=== PATIENT | male | born 1960 | race Caucasian/White ===

== ENCOUNTER 2016-12-26 17:49 | Inpatient (IN) | payer BC ==
[2016-12-26 19:31] LABS: Hematocrit 47 % (42-52); Hemoglobin 15.5 g/dl (14.0-18.0); Mean Corpuscular HGB Conc 33 g/dl (31-36); Mean Corpuscular Hemoglobin 30 pg (27-31); Mean Corpuscular Volume 90 fL (80-94); Mean Platelet Volume 9 um3 (7.4-10.4); Red Blood Count 5.24 10^6/ul (4.0-5.4); Red Cell Distribution Width 15 % (10.5-15); White Blood Count 6.3 10^3/ul (3.5-10.8)
[2016-12-26 19:52] LABS: Albumin 4.2 g/dL (3.2-5.2); BUN/Creatinine Ratio 21.6 (8-20); Calcium 9.4 mg/dL (8.6-10.3); EGFR African American 102.2 (>60); EGFR Non-African American 79.5 (>60); Globulin 2.8 g/dL (2-4); Magnesium 2.1 mg/dL (1.9-2.7); Potassium 4.3 mmol/L (3.5-5.0); Total Bilirubin 0.7 mg/dL (0.2-1.0)
[2016-12-26 20:13] LABS: TSH (Thyroid Stimulating Horm) 1.37 mcIU/mL (0.34-5.60)
--- NOTE | 2016-12-26 21:38 | ED ---
Julius De Dios Benjamin, scribed for Omer Em MD on 12/26/16 at 1905 . Palpitations / Dysrhythmia - HPI Summary HPI Summary: 56yo male comes to ED after having afib EKG readings at his PCPs office during his routine checkup visit. Pt is asymptomatic. Denies trouble lying flat in bed , or exercising. No dizziness, lightheadedness, CP, or SOB. - History of Current Complaint Chief Complaint: EDDysrhythmPalp Time Seen by Provider: 12/26/16 18:05 Hx Obtained From: Patient Onset/Duration: Sudden Onset, Lasting Hours, Still Present Severity Initially: Mild Severity Currently: Mild Character: Irregular Aggravating: Nothing Alleviating: Nothing Associated Signs & Symptoms: Negative - Allergy/Home Medications Allergies/Adverse Reactions: Allergies Allergy/AdvReac Type Severity Reaction Status Date / Time No Known Allergies Allergy Verified 02/29/12 14:14 Home Medications: Home Medications [id number] Ethyl Esters (NF) [Lovaza (NF)] 4 gm PO DAILY 12/26/16 [History Confirmed 12/26/16] traZODone TAB* [Desyrel TAB*] 100 mg PO BEDTIME PRN 12/26/16 [History Confirmed 12/26/16] PMH/Surg Hx/FS Hx/Imm Hx Endocrine/Hematology History: Denies: Hx Diabetes, Hx Thyroid Disease Cardiovascular History: Denies: Hx Hypertension Respiratory History: Denies: Hx Asthma, Hx Chronic Obstructive Pulmonary Disease (COPD) GI History: Denies: Hx Ulcer Infectious Disease History: No Infectious Disease History: Denies: Hx Hepatitis, Hx Human Immunodeficiency Virus (HIV), Traveled Outside the [place] in Last 30 Days - Family History Known Family History: Negative: Hypertension - Social History Occupation: Employed Full-time Lives: With Family Alcohol Use: Occasionally Substance Use Type: Reports: None Smoking Status (MU): Never Smoked Tobacco Review of Systems Constitutional: Negative Eyes: Negative ENT: Negative Positive: Palpitations Respiratory: Negative Gastrointestinal: Negative Genitourinary: Negative Musculoskeletal: Negative Skin: Negative Neurological: Negative Psychological: Normal All Other Systems Reviewed And Are Negative: Yes Physical Exam Triage Information Reviewed: Yes Vital Signs On Initial Exam: Initial Vitals Temp Pulse Resp BP Pulse Ox 97.1 F 106 16 134/88 95 12/26/16 17:51 12/26/16 17:51 12/26/16 17:51 12/26/16 17:51 12/26/16 17:51 Vital Signs Reviewed: Yes Appearance: Positive: Well-Appearing, No Pain Distress, Well-Nourished Skin: Positive: Warm, Skin Color Reflects Adequate Perfusion, Dry Head/Face: Positive: Normal Head/Face Inspection Eyes: Positive: Normal ENT: Positive: Normal ENT inspection, Hearing grossly normal Neck: Positive: Supple, Nontender Respiratory/Lung Sounds: Positive: Clear to Auscultation, Breath Sounds Present Cardiovascular: Positive: IRR Abdomen Description: Positive: Nontender, Soft Bowel Sounds: Positive: Present Musculoskeletal: Positive: Normal, Strength/ROM Intact Neurological: Positive: Sensory/Motor Intact, Alert, Oriented to Person Place, Time, CN Intact II-III Psychiatric: Positive: Affect/Mood Appropriate - Sidman Coma Scale Coma Scale Total: 15 Diagnostics - Vital Signs Vital Signs Temp Pulse Resp BP Pulse Ox 12/26/16 18:05 77 95 12/26/16 18:04 98.7 F 89 18 118/87 95 12/26/16 18:03 118/87 12/26/16 17:51 97.1 F 106 16 134/88 95 - Laboratory Lab Results: Lab Results 12/26/16 12/26/16 12/26/16 Range/Units 19:12 19:12 19:12 WBC 6.3 (3.5-10.8) 10^3/ul RBC 5.24 (4.0-5.4) 10^6/ul Hgb 15.5 (14.0-18.0) g/dl Hct 47 (42-52) % MCV 90 (80-94) fL MCH 30 (27-31) pg MCHC 33 (31-36) g/dl RDW 15 (10.5-15) % Plt Count 240 (150-450) 10^3/ul MPV 9 (7.4-10.4) um3 Neut % (Auto) 39.7 (38-83) % Lymph % (Auto) 45.2 (25-47) % [place] % (Auto) 12.4 H (1-9) % Eos % (Auto) 1.7 (0-6) % Baso % (Auto) 1.0 (0-2) % Absolute Neuts (auto) 2.5 (1.5-7.7) 10^3/ul Absolute Lymphs (auto) 2.9 (1.0-4.8) 10^3/ul Absolute Monos (auto) 0.8 (0-0.8) 10^3/ul Absolute Eos (auto) 0.1 (0-0.6) 10^3/ul Absolute Basos (auto) 0.1 (0-0.2) 10^3/ul Absolute Nucleated RBC 0.01 10^3/ul Nucleated RBC % 0.2 INR (Anticoag Therapy) 0.94 (0.89-1.11) Sodium 139 (133-145) mmol/L Potassium 4.3 (3.5-5.0) mmol/L Chloride 103 (101-111) mmol/L Carbon Dioxide 29 (22-32) mmol/L Anion Gap 7 (2-11) mmol/L BUN 21 (6-24) mg/dL Creatinine 0.97 (0.67-1.17) mg/dL Est GFR ( Amer) 102.2 (>60) Est GFR (Non-Af Amer) 79.5 (>60) BUN/Creatinine Ratio 21.6 H (8-20) Glucose 99 (70-100) mg/dL Lactic Acid (0.5-2.0) mmol/L Calcium 9.4 (8.6-10.3) mg/dL Magnesium 2.1 (1.9-2.7) mg/dL Total Bilirubin 0.70 (0.2-1.0) mg/dL AST 31 (13-39) U/L ALT 37 (7-52) U/L Alkaline Phosphatase 60 (34-104) U/L Troponin I 0.00 (<0.04) ng/mL B-Natriuretic Peptide ( - 100) pg/mL Total Protein 7.0 (6.4-8.9) g/dL Albumin 4.2 (3.2-5.2) g/dL Globulin 2.8 (2-4) g/dL Albumin/Globulin Ratio 1.5 (1-3) TSH 1.37 (0.34-5.60) mcIU/mL 12/26/16 12/26/16 Range/Units 19:12 19:12 WBC (3.5-10.8) 10^3/ul RBC (4.0-5.4) 10^6/ul Hgb (14.0-18.0) g/dl Hct (42-52) % MCV (80-94) fL MCH (27-31) pg MCHC (31-36) g/dl RDW (10.5-15) % Plt Count (150-450) 10^3/ul MPV (7.4-10.4) um3 Neut % (Auto) (38-83) % Lymph % (Auto) (25-47) % [place] % (Auto) (1-9) % Eos % (Auto) (0-6) % Baso % (Auto) (0-2) % Absolute Neuts (auto) (1.5-7.7) 10^3/ul Absolute Lymphs (auto) (1.0-4.8) 10^3/ul Absolute Monos (auto) (0-0.8) 10^3/ul Absolute Eos (auto) (0-0.6) 10^3/ul Absolute Basos (auto) (0-0.2) 10^3/ul Absolute Nucleated RBC 10^3/ul Nucleated RBC % INR (Anticoag Therapy) (0.89-1.11) Sodium (133-145) mmol/L Potassium (3.5-5.0) mmol/L Chloride (101-111) mmol/L Carbon Dioxide (22-32) mmol/L Anion Gap (2-11) mmol/L BUN (6-24) mg/dL Creatinine (0.67-1.17) mg/dL Est GFR ( Amer) (>60) Est GFR (Non-Af Amer) (>60) BUN/Creatinine Ratio (8-20) Glucose (70-100) mg/dL Lactic Acid 1.1 (0.5-2.0) mmol/L Calcium (8.6-10.3) mg/dL Magnesium (1.9-2.7) mg/dL Total Bilirubin (0.2-1.0) mg/dL AST (13-39) U/L ALT (7-52) U/L Alkaline Phosphatase (34-104) U/L Troponin I (<0.04) ng/mL B-Natriuretic Peptide 184 H ( - 100) pg/mL Total Protein (6.4-8.9) g/dL Albumin (3.2-5.2) g/dL Globulin (2-4) g/dL Albumin/Globulin Ratio (1-3) TSH (0.34-5.60) mcIU/mL Result Diagrams: 12/26/16 19:12 12/26/16 19:12 Lab Statement: Any lab studies that have been ordered have been reviewed, and results considered in the medical decision making process. - EKG 1807. Cardiac Rate: Tachycardia - 114bpm EKG Rhythm: Atrial Fibrillation ST Segment: Non-Specific Course/Dx - Course Course Of Treatment: Reviewed pts medication and allergy lists. Blood pressure noted. Discussed with Dr. Godfrey (Cardio) at 1956. Assessment/Plan: Mr. Salazar presented with the new onset of A-Fib in a controlled rate and asymptomatic. Dr. Segovia has been consulted to evaluate him. No Critical Care Time - Diagnoses Provider Diagnoses: New onset a-fib Discharge - Discharge Plan Condition: Stable Disposition: ADMITTED TO [facility] The documentation as recorded by the Julius peters Benjamin accurately reflects the service I personally performed and the decisions made by , Omer Em MD.
[2016-12-26] MEDS ORDERED: traZODone TAB* 50 MG TAB PO PRN (23:08)
[2016-12-26] MEDS ORDERED: Metoprolol Tartrate TAB* 25 MG PO SCH (23:45)
--- NOTE | 2016-12-27 02:01 | HP ---
CC: Warren Wolf NP * HISTORY AND PHYSICAL: DATE OF ADMISSION: 12/26/16 PRIMARY CARE PHYSICIAN: Warren Wolf NP CHIEF COMPLAINT: Irregular heartbeat. HISTORY OF PRESENT ILLNESS: The patient is a 56-year-old gentleman who said he just went for his regular history and physical today with his PCP and had no symptoms but his doctor noticed an irregular heartbeat on exam. She did an EKG and found he was in atrial fibrillation and sent him to the ER for evaluation. Here in the ER, the patient was in atrial fibrillation, but again was asymptomatic. He denies chest pain, shortness of breath, palpitations, or lightheadedness or weakness. He was slightly tachycardic and rate is just over 100 beats per minute. A call was placed to Cardiology by the ER doctor who wanted the patient to be admitted for evaluation and echocardiogram. PAST MEDICAL HISTORY: The patient has no significant past medical history. PAST SURGICAL HISTORY: He has no past surgical history. MEDICATIONS: His only medications are: 1. Lovaza 4 g daily. 2. Trazodone 100 mg at bedtime as needed. ALLERGIES: He has no known drug allergies. FAMILY HISTORY: His mother is alive at 82, alive and well. Father at 75 of heart condition. SOCIAL HISTORY: No tobacco. Social alcohol and recreational drug use. 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 He is . His Mariah Salazar is his healthcare proxy. He has 2 daughters. REVIEW OF SYSTEMS: A 14-point review of systems is completed with the patient. All pertinent positives and negatives are in the history of present illness, otherwise it is negative. PHYSICAL EXAMINATION GENERAL: A pleasant gentleman lying in bed, in no acute distress. VITAL SIGNS: Temperature 97.7 degrees, heart rate 92 beats per minute, respiratory rate 16 breaths per minute, pulse ox 95% on room air, blood pressure . HEENT: Normocephalic and atraumatic. Pupils are equal, round and reactive to light. Moist mucous membranes. NECK: Supple. No JVD, bruits, palpable thyroid or lymphadenopathy. CHEST: Clear to auscultation and percussion bilaterally. CARDIOVASCULAR: S1, S2 appreciated. Regular rate and rhythm. No murmurs, gallops, or rubs. ABDOMEN: Positive bowel sounds in all 4 quadrants. Soft, nontender, and nondistended. No hepatosplenomegaly. EXTREMITIES: No cyanosis, clubbing, or edema. +2 peripheral pulses bilaterally. NEUROLOGIC: Alert and oriented x3. Moves all extremities. SKIN: No rashes or abnormalities. LABORATORY DATA: White count 6.3, hemoglobin 15.5, hematocrit 47, platelets 240,000. Sodium is 139, potassium 4.3, chloride 103, CO2 29, BUN 21, creatinine 0.97, glucose is 99, BNP is 184. INR is 0.94. IMAGING: EKG shows atrial fibrillation with rapid ventricular response at a rate of 114, normal axis, no acute ST or T-wave changes. ASSESSMENT AND PLAN: 1. Atrial fibrillation, new onset, but do not know how long the patient has had it as he has been asymptomatic. His CHADS2 score is 0. I will start him on an aspirin a day. He is slightly tachycardic, so I will start him on metoprolol 25 mg twice a day. I will cycle his troponins. I will get a transthoracic echocardiogram in the a.m. I have admitted him to the CD Unit and should be able to be discharged as early as tomorrow. 2. FEN. Regular diet. 3. DVT prophylaxis. Heparin subcu. 4. The patient is a full code. TIME SPENT: Over 75 minutes were spent on this H and P; more than 40 minutes of which is spent direct [id number] contact with the patient in evaluation, physical exam, counseling, and coordination of care. [id number]/[facility] #: [id number] MTDD
[2016-12-27] MEDS ORDERED: Heparin VIAL(*) 5000 UNITS/ML VIAL (FIVE THOUSAND) SUBCUT SCH (06:00)
[2016-12-27] MEDS ORDERED: Diltiazem IV* 5 MG/ML 5 ML VIAL (for loading dose/IV Push) (25 MG) IV SLOW PU ONE (08:12)
[2016-12-27] MEDS ORDERED: Diltiazem DRIP* 100 MG/100 ML ADDV.BAG IVPB SCH (08:13)
[2016-12-27] MEDS ORDERED: Diltiazem IV VIAL* 125 MG in D5W 100 ML BAG* 100 ML IV ONE (08:13)
[2016-12-27] MEDS ORDERED: Aspirin EC TAB* 325 MG PO SCH (09:00)
[2016-12-27] MEDS: Apixaban* 5 MG TAB PO SCH ×2 (11:37→20:54)
--- NOTE | 2016-12-27 12:25 | CONS ---
CC: Hospitalist Service; Warren Wolf NP CONSULTATION REPORT: DATE OF CONSULT: 12/27/16 REASON FOR CONSULTATION: Atrial fibrillation. CHIEF COMPLAINT: Exercise-induced diaphoresis. HISTORY OF PRESENT ILLNESS: Mr. Salazar is a 56-year-old gentleman with no prior history of AFib. He presented to his primary practitioner yesterday for prescription renewal and on exam his heart rate was irregularly irregular. An EKG in the office confirmed he was in atrial fibrillation and he was advised to present to the emergency department. EKGs here confirmed his atrial fibrillation. He was admitted and metoprolol initiated. Overnight, he has continued to have rapid ventricular rates. Anticoagulation was not initiated overnight due to his low CHADS score. The patient denies any awareness of palpitations or racing of the heart, no decline in functional ability, no orthopnea, PND, exercise intolerance. His mentioned, and the patient concurs, that he is much more diaphoretic when he goes out on the weekends to do chores in the garden than he has been in the past. This has been true all summer. The patient drinks alcohol occasionally and no recent excess or change in patterns. His said he does snore a lot if he sleeps in the chair, but there is no history of fatigue, daytime somnolence, or decline in energy. When I asked the patient about Lyme, he said he has had a spot on his thigh for many weeks that has not gone away, but it never looked like a target lesion and he never saw a tick on it. PAST MEDICAL HISTORY: The patient has a past medical history of rheumatic fever in childhood. He had a murmur heard on exam for the and was told to use antibiotic prophylaxis years ago and he has dyslipidemia treated with Lovaza. MEDICATIONS: Current medications and outpatient medications include: 1. Lovaza 4 g a day. 2. Trazodone 100 mg q.h.s. p.r.n. Inpatient medications include: 1. Aspirin 325 mg a day. 2. Lopressor 25 mg b.i.d. 3. Subcutaneous heparin. 4. Trazodone 100 mg q.h.s. ALLERGIES: He has no known medication allergies. FAMILY HISTORY: Significant that his father at age 75 with history of diabetes and from complications of open heart surgery, but the family is unsure if it was valve or bypass ([facility]). The patient's mother is alive in her 80s. SOCIAL HISTORY: The patient drinks rare alcohol. No history of recreational drug use. 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 REVIEW OF SYSTEMS: A 14-point review of systems was completed, pertinent positives as listed in the history of present illness include diaphoresis with exercise, heavy snoring with sleeping, and the lesion on his thigh that has been present for a week that he is worried may represent a bug bite. It is negative for orthopnea, PND, chest pain, pressure, heaviness, dizziness, palpitations, or change in functional ability. All other review of systems were unremarkable. The patient awoke Sunday with bilateral foot pain that he has never had before and this progressively improved throughout the day as he moved around and has not recurred. PHYSICAL EXAM: Vital Signs: The patient is 5 feet 10 inches, weighs 192 pounds with a BMI of 27. Vital signs on arrival: Blood pressure 134/88 with a pulse of 106. Current vitals: Blood pressure 113/86, pulse 121, irregularly irregular. Temperature 97.6 and oxygen saturation on room air 94%. General: The patient is an older middle-aged gentleman in no acute distress. Psychologically, calm, cooperative, pleasant. Neurologically, awake, alert, oriented to person, place and time. Cranial nerves II through XII are intact. Grossly normal sensory and motor function, moves well in the bed, but gait not checked. Skin: He is moist and the hair on one of his temples is matted to his head from moisture. There is no evidence of cyanosis. The inner thigh has one maculopapular lesion; otherwise, no rashes or other skin abnormalities. HEENT: Pupils are equal and round. Mucous membranes are moist. Neck: Without increased JVP, good carotid pulses, no audible bruits. Respirations were clear with good effort. No wheezes, rales, or rhonchi. Coronary: S1, S2, irregularly irregular. No murmurs heard in any position even in the left lateral decubitus position and no murmurs at end expiration. Abdomen: Flat, active bowel sounds, soft, nontender, no hepatosplenomegaly or masses. No bruits. The lower extremities had thready dorsalis pedal pulses. DIAGNOSTIC STUDIES/LAB DATA: A 12-lead ECG on arrival here shows atrial fibrillation with a ventricular rate of 114 beats a minute, QRS axis +15 with normal intraventricular conduction times, ST segment is unremarkable. Monitor AFib with 2.5 second pauses to high rates 150s intermittently. White count 6.3, hemoglobin 15.5, platelets 240. INR 0.94. Sodium 139, potassium 4.3, chloride 103, bicarb 29, BUN 21, creatinine 0.97, ALT 37. Troponin #1 0.00, #2 0.01, #3 0.00. BNP 184. TSH 1.37. No chest x-ray completed. No echo or other studies at this point in time. IMPRESSION: In summary, Mr. Salazar is a 56-year-old gentleman who presented with atrial fibrillation of uncertain duration found at a routine physician appointment, who has a rapid ventricular rate that has not responded to low doses of metoprolol. I agree with the hospitalist's plan to initiate diltiazem drip for better rate control and full anticoagulation with the aim of cardioversion. I had an extensive and comprehensive discussions with the patient, his , and one of his daughter's about atrial fibrillation potential etiologies including age over 50, sleep apnea and even in certain instances, Lyme, as well as valvular disease. His CHADS score is low from the information we have, but to cardiovert him and minimize risk of stroke, I have recommended anticoagulation and either waiting a month or HARDY-guided cardioversion in the morning. The patient is amenable to HARDY-guided cardioversion in the morning and I recommended he stay on anticoagulation at least 3 months. Following his transesophageal echo, we can determine antiarrhythmic needs. As an outpatient, I would recommend he get a formal sleep study to look for the possibility of obstructive sleep apnea because of his history of snoring and correlation of sleep apnea with atrial fibrillation. Additional recommendations will be made pending his echo results and ability to cardiovert. ADDENDUM: transthoracic echo showed EF 25%, bicuspid aortic valve with moderate stenosis. I recommended stopping diltiazem, intitiation of ACEI and Coreg or Toprol and continue with the plan of anticoagulation and HARDY guided cardioversion. He will need an antiarrhythmic post CV, amiodarone the safest short term and can be converted in the future. Serial echos to see if EF improves with pentecostal of sinus rhythm and the patient should get a stress test or cath to evaluate for possible CAD although normal troponins are reassuring. [id number]/[facility] #: [id number] MINH
--- NOTE | 2016-12-27 12:30 | ECHO ---
Patient: CHERISE WEBSTER [facility] Rec#: [id number] : 1960 Date: 12/27/2016 Age: 56y Height: 177.8 cm / 70.0 in Weight: 87.09 kg / 191.9 lbs Sex: M BSA: 2.05 Room#: 434 Admit Date#: 12/26/2016 Type: Inpatient Referring: Maycol Segovia MD Reading: Gisele Baker MD Religious Educator: Lilly Samuel,RDCS,RDMS CC: Warren Luciano Transthoracic Echocardiogram Indication: AFIB BP: 114/68 HR: 87 Rhythm: A-Fib Findings History: Murmur, rheumatic fever Technical Comments: The study quality is good. Completed 0900 Left Ventricle: The left ventricular chamber size is normal. Mild concentric left ventricular hypertrophy is observed. There is global hypokinesis of the left ventricle with minor regional variation. There is severely decreased left ventricular systolic function. The estimated ejection fraction is 20-25%. The assessment of diastolic function is non-diagnostic. Left Atrium: The left atrium is mild to moderately dilated. Right Ventricle: The right ventricle wall thickness is mildly increased. The right ventricle is slightly dilated. The right ventricular global systolic function is moderately reduced. Right Atrium: The right atrium is mildly dilated. Aortic Valve: The aortic valve appears bicuspid. The aortic valve leaflets are moderately thickened.NCC very calcified. Systolic excursion of the aortic valve cusps is reduced. There is a trace of aortic regurgitation. There is moderate aortic stenosis. The mean gradient of the aortic valve is 7.3 mmHg. The aortic valve area, by peak velocities, is calculated at 1 cm2. Mitral Valve: The mitral valve leaflets appear normal. There is mild mitral regurgitation. There is no evidence of mitral stenosis. Tricuspid Valve: The tricuspid valve leaflets are normal. There is mild tricuspid regurgitation. No pulmonary hypertension is noted. Pulmonic Valve: The pulmonic valve appears normal. There is mild pulmonic regurgitation. Pericardium: There is no significant pericardial effusion. Aorta: There is moderate dilatation of the ascending aorta. There is moderate dilatation of the aortic arch. There is no dilation of the aortic root. Pulmonary Artery: The main pulmonary artery appears normal. Venous: The inferior vena cava appears normal in size. There is a greater than 50% respiratory change in the inferior vena cava dimension. Conclusions Mild concentric left ventricular hypertrophy is observed. Mild concentric left ventricular hypertrophy is observed. There is global hypokinesis of the left ventricle with minor regional variation. The estimated ejection fraction is 20-25%. The right ventricle wall thickness is mildly increased. The aortic valve appears bicuspid. There is a trace of aortic regurgitation. There is moderate aortic stenosis: the mean gradient of the aortic valve is 7.3 mmHg, the aortic valve area is 1 cm2, DI 0.34. (EBENEZER could be overestimated due to depressed EF). There is mild mitral regurgitation. There is mild tricuspid regurgitation. No pulmonary hypertension is noted. There is moderate dilatation of the aortic archL 4 cm. The patient was in atrial fibrillation throughout the study. No prior study to compare. Measurements Name Value Normal Range RVIDd (AP) 2D 3.7 cm (0.9 - 2.6) RVDdMajor (2D) 3.4 cm (2.2 - 4.4) RAd ISD 4CH 6.1 cm (3.4 - 4.9) RA (A4C)W 4.5 cm (2.9 - 4.6) IVSd (2D) 1.2 cm (0.6 - 1) LVPWd (2D) 1.3 cm (0.6 - 1) LVIDd (2D) 4.8 cm (3.6 - 5.4) LVIDs (2D) 4.5 cm - LV FS (2D) 6 % (25 - 45) Aortic Annulus 2.2 cm (1.4 - 2.6) Ao root diameter (2D) 3.5 cm (2.1 - 3.5) Ascending Ao 4 cm (2.1 - 3.4) Aortic arch 4 cm (1.8 - 3.4) LA dimension (AP) 2D 4.1 cm (2.3 - 3.8) LAd ISD 4CH 6.2 cm (2.9 - 5.3) LA ISD 4CH W 4.4 cm (2.5 - 4.5) Name Value Normal Range LA ESV SP 4CH (A/L) 79.86 ml - LA ESV SP 2CH (A/L) 72.35 ml - LA ESV BP (A/L) 77.28 ml - LA ESV BP (A/L) index 38 ml/m2 - LA ESV SP 4CH (MOD) 73.57 ml - LA ESV SP 2CH (MOD) 69.25 ml - Name Value Normal Range MV E-wave Vmax 0.6 m/sec - MV deceleration time 120 msec - LV septal e' Vmax 0.05 m/sec - LV lateral e' Vmax 0.04 m/sec - LV E:e' septal ratio 12 ratio - LV E:e' lateral ratio 15 ratio - Name Value Normal Range AV Vmax 1.7 m/sec - AV VTI 32 cm - AV peak gradient 11.6 mmHg - AV mean gradient 7.3 mmHg - LVOT diameter 2.1 cm - LVOT Vmax 0.5 m/sec - LVOT VTI 10.8 cm - LVOT peak gradient 1 mmHg - LVOT mean gradient 0.7 mmHg - DOI (VTI) 0.3 ratio - EBENEZER (continuity Vmax) 1 cm2 - EBENEZER (continuity VTI) 1.2 cm2 - PATRICIA Vmax 0.7 m/sec - Name Value Normal Range TR Vmax 1.9 m/sec - TR peak gradient 14 mmHg - RAP 8 mmHg - RVSP 22 mmHg - IVC diameter 1.9 cm - Name Value Normal Range PV Vmax 0.5 m/sec - PV peak gradient 1 mmHg -
[2016-12-27] MEDS ORDERED: Diltiazem TAB* 60 MG PO SCH (13:00)
[2016-12-27] MEDS: Carvedilol TAB* 6.25 MG PO SCH ×2 (13:25→20:54)
--- NOTE | 2016-12-27 13:52 | PN ---
Subjective Date of Service: 12/27/16 Interval History: HOSPITALIST PROGRESS NOTE Patient seen and examined at bedside. He offers no complaints, even when his HR was >150bpm. He states he went to a regular physicial with his PCP yesterday and was found to be in Afib. Last visit prior to that was in April 2016 and at that time no one mention irregular HB. 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 No chest pain, palpitations, dizziness, lightheadedness, or dyspnea. Family History: Unchanged from Admission Social History: Unchanged from Admission Past Medical History: Unchanged from Admission Objective Active Medications: Apixaban (Eliquis*) 5 mg PO BID [facility] Last Admin: 12/27/16 11:37 Dose: 5 mg Carvedilol (Coreg Tab*) 6.25 mg PO BID [facility] Last Admin: 12/27/16 13:25 Dose: 6.25 mg Lisinopril (Prinivil Tab*) 5 mg PO DAILY [facility] Trazodone HCl (Desyrel Tab*) 100 mg PO BEDTIME PRN PRN Reason: SLEEP Vital Signs 12/26/16 12/27/16 12/27/16 23:15 00:00 04:06 Temperature 97.7 F 97.5 F Pulse Rate 76 135 87 Respiratory 17 16 Rate Blood Pressure 113/69 129/78 114/86 (mmHg) O2 Sat by Pulse 95 96 98 Oximetry 12/27/16 07:36 Temperature 97.6 F Pulse Rate 121 Respiratory 16 Rate Blood Pressure 113/86 (mmHg) O2 Sat by Pulse 94 Oximetry Oxygen Devices in Use Now: None Appearance: Pleasant gentleman sitting up in bed in NAD. Eyes: No Scleral Icterus Ears/Nose/Mouth/Throat: Mucous Membranes Moist Neck: Trachea Midline Respiratory: Symmetrical Chest Expansion and Respiratory Effort, Clear to Auscultation Cardiovascular: - - Normal S1 and S2, irregularly irregular, could not hear any murmurs Abdominal: NL Sounds; No Tenderness; No Distention Extremities: No Edema Neurological: Alert and Oriented x 3, NL Muscle Strength and Tone Lines/Tubes/Other Access: Clean, Dry and Intact Peripheral IV Nutrition: Taking PO's Result Diagrams: 12/26/16 19:12 12/26/16 19:12 Assess/Plan/Problems-Billing Assessment: Mr. 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 - Patient Problems (1) Atrial fibrillation with RVR Comment: - Did not respond to Metoprolol initially, but responded well to Cardizem drip. - Now we know his EF is depressed, will d/c Cardizem, start Coreg and Lisinopril. - Lengthy conversation with patient regarding need for anticoagulation. Although his CHADs score is low, he would benefit of HARDY CV and to pursue that, he needs to be anticoagulated. We discussed risks and benefits of anticoagulation with heparin, warfarin, NOACS. After reviewing the information, we decided to start Eliquis. - Cardiology consult requested. (2) Systolic CHF Comment: - Newly diagnosed, but not in exacerbation at this time. - Echo showed EF 20-25% with global hypokinesis, bicuspid AV with moderate stenosis. - Cardiology recommended Coreg and Lisinopril. (3) DVT prophylaxis Comment: - Eliquis. (4) Full code status Status and Disposition: Change to inpatient.
[2016-12-28] MEDS ORDERED: Lisinopril TAB* 5 MG PO SCH (09:00)
[2016-12-28] MEDS: Apixaban* 5 MG TAB PO SCH (09:44)
[2016-12-28] MEDS: Carvedilol TAB* 6.25 MG PO SCH (09:44)
[2016-12-28] MEDS ORDERED: Midazolam* 1 MG/ML 5 ML VIAL (5 MG) ONE (10:19)
[2016-12-28] MEDS ORDERED: fentaNYL* 50 MCG/ML 2 ML VIAL (100 MCG VIAL) ONE (10:20)
[2016-12-28] MEDS ORDERED: Flumazenil* 0.1 MG/ML 5 ML MDV ONE (10:20)
[2016-12-28] MEDS ORDERED: Naloxone* 0.4 MG/ML 1 ML VIAL ONE (10:20)
[2016-12-28] MEDS ORDERED: Lidocaine 2% VISCOUS* 15 ML UDC ONE (10:20)
[2016-12-28 14:35] VITALS: BP 115/75
--- NOTE | 2016-12-28 14:36 | TEE ---
Amended Report Patient: CHERISE WEBSTER [facility] Rec#: [id number] : 1960 Date: 12/28/2016 Age: 56y Height: 178 cm / 70.1 in Weight: 87 kg / 191.7 lbs Sex: M BSA: 2.05 Room#: 434 Admit Date#: 12/26/2016 Type: Inpatient Referring: Gisele Baker MD Performing: Luiz Godfrey MD Reading: Luiz Godfrey MD Shrimp Peeler: Lilly Samuel RDCS,RDMS Nurse: Nasra Diaz RN Transesophageal Echocardiogram Indication: AFIB BP: 109/91 HR: 121 Rhythm: A-Fib Findings History: Murmur, rheumatic fever Technical Comments: The study quality is good. Left Ventricle: The left ventricular chamber size is mildly dilated. Mild concentric left ventricular hypertrophy is observed. There is severely decreased left ventricular systolic function. The estimated ejection fraction is 20-25%. The assessment of diastolic function is non-diagnostic. Left Atrium: The left atrium is mild to moderately dilated. Spontaneous echo contrast is present in the left atrium cavity and appendage. plus 4 smoke. Echodense structures noted within lower 3rd of left atrial appendage. Unable to rule out a mass or thrombus in the left atrial appendage. Right Ventricle: The right ventricle is slightly dilated. The right ventricular global systolic function is mildly to moderately reduced. Right Atrium: The right atrium is mildly dilated. The bubble study is negative. A patent foramen ovale is not demonstrated with color Doppler and agitated contrast. Aortic Valve: The aortic valve appears bicuspid. The aortic valve leaflets are mildly thickened. There is aortic annular calcification. There is a trace of aortic regurgitation. There is mild aortic stenosis. Mitral Valve: The mitral valve leaflets appear normal. There is a trace of mitral regurgitation. There is no evidence of mitral stenosis. Tricuspid Valve: The tricuspid valve leaflets are normal. There is trace tricuspid regurgitation. Pulmonic Valve: The pulmonic valve appears normal. There is mild pulmonic regurgitation. Pericardium: There is no significant pericardial effusion. Aorta: There is moderate dilatation of the ascending aorta. There is mild dilatation of the aortic root. Pulmonary Artery: The main pulmonary artery appears normal. Venous: The inferior vena cava appears normal. The pulmonary veins appear normal. 3 out of 4 visualized The superior vena cava appears normal. HARDY Procedures: All standard views were attempted within the limitations of patient tolerance and safety. History and physical as well as labs were reviewed. The patient was in a fasting state. Risks and benefits of the procedure, including alternatives, were discussed and written informed consent was obtained. The patient and/or their health care sales donor recruitment representative expressed understanding of the procedure, risks and benefits. Baseline and continuous monitoring of blood pressure, heart rate, pulse oximetry and heart rhythm was performed throughout the procedure. The appropriate time-out procedure was performed as per [facility] protocol. The patient was placed in the left lateral decubitus position. The patient's posterior pharynx was anesthetized with 20ml of 2% viscous lidocaine. The patient received IV Midazolam with a total dose of 4 mg The patient received IV Fentanyl with a total dose of 50 mcg An oral bite block was inserted for protection of oral dentition. The multiplane transesophageal echocardiogram probe was inserted through the posterior oropharynx and advanced into the esophagus without difficulty. Multiple 2D images were obtained of the heart and its related structures. Color flow Doppler was used for evaluation. Spectral Doppler was also used. The atrial septum was interrogated with color flow Doppler. At the conclusion of the procedure the probe was removed with continuous suction without complications. The patient tolerated the procedure with no apparent complications. Contrast: Intravenous agitated saline contrast was used to assess intracardiac shunting. Image 34 Conclusions The left ventricular chamber size is mildly dilated. Mild concentric left ventricular hypertrophy is observed. There is severely decreased left ventricular systolic function. The estimated ejection fraction is 20-25%. The left atrium is mild to moderately dilated. Spontaneous echo contrast is present in the left atrium cavity and appendage. plus 4 smoke. Echodense structures noted within lower 3rd of left atrial appendage. Unable to rule out a mass or thrombus in the left atrial appendage. There is a trace of aortic regurgitation. There is mild aortic stenosis. There is a trace of mitral regurgitation. There is trace tricuspid regurgitation. There is moderate dilatation of the ascending aorta. There is mild dilatation of the aortic root. Measurements Name Value Normal Range Aortic Annulus 2.5 cm (1.4 - 2.6) Ao root diameter (2D) 3.6 cm (2.1 - 3.5) Ascending Ao 4.3 cm (2.1 - 3.4) Name Value Normal Range MV E-wave Vmax 0.8 m/sec - MV deceleration time 99.2 msec -
--- NOTE | 2016-12-29 01:22 | DS ---
CC: Warren Wolf NP; Dr. Baker * DISCHARGE SUMMARY: DATE OF ADMISSION: 12/26/16 DATE OF DISCHARGE: 12/28/16 PRIMARY CARE PROVIDER: Warren Wolf NP CONSULTING MANAGER RISK: Dr. Baker. DISCHARGE DIAGNOSES: 1. Atrial fibrillation with rapid ventricular rate. 2. Probable left atrial appendage clot. 3. Systolic congestive heart failure. 4. Bicuspid aortic valve. SECONDARY DIAGNOSIS: Rheumatoid fever in childhood. MEDICATION LIST: 1. Lovaza 4 g p.o. daily. 2. Trazodone 100 mg p.o. at bedtime as needed for insomnia. New Medications: 1. Lisinopril 5 mg p.o. daily. 2. Digoxin 0.25 mg p.o. daily. 3. Carvedilol 6.25 mg p.o. b.i.d. 4. Apixaban 5 mg p.o. b.i.d. HOSPITAL COURSE: Mr. Salazar is a 56-year-old male with a past medical history stated above that went to a routine appointment with his primary care provider and was found to have an irregular heart beat. He was sent to the emergency room for further evaluation and was found to be in atrial fibrillation. The patient insists that he is asymptomatic with no chest pain, no palpitations; but in further conversation with his , she says that over the summer she has noticed that he has less exercise capacity and have episodes of diaphoresis while doing work around the home. For more details about his presentation, I refer you to his history and physical. The patient initially received metoprolol that failed to control his heart rate. He required a Cardizem drip for rate control initially. He had a transthoracic echocardiogram that showed mild concentric LVH, global hypokinesis of the left ventricle, ejection fraction of 20% to 25% with aortic valve that appears bicuspid with moderate aortic stenosis. No pulmonary hypertension is noted and there is moderate dilatation of the aortic arch at 4 cm. The patient was seen in consultation by Cardiology (Dr. Baker) and her impression was that the patient is a 56-year-old gentleman who presented with atrial fibrillation of uncertain duration found at a routine physician appointment, who has a rapid ventricular rate that has not responded to low doses of metoprolol. She was in agreement with Cardizem drip and she was concerned with the possibility of sleep apnea considering his age and the report from his that the patient snores. She felt that he would benefit of a sleep study as outpatient. The patient's PACHECO score is low but since we were considering possible HARDY cardioversion, I had a lengthy conversation with him about anticoagulation options and after reviewing risks and benefits, we decided to go with Ronaldo. After his echocardiogram result, Dr. Baker recommended stopping diltiazem, adding an edenilson inhibitor and Coreg and continue anticoagulation. Her plan was for serial echo as outpatient to see if his EF improves with muslim of sinus rhythm and then plan for a stress test of a cardiac cath to evaluate for possible CAD down the road. The patient was prepared for a transesophageal echocardiogram that showed spontaneous echo contrast in the left atrial cavity and appendage, +4 smoke and an echodense structure noted within the lower third of the left atrial appendage. As Dr. Godfrey was unable to rule out a mass or thrombus in the left atrial appendage cardioversion was not performed. Dr. Godfrey recommended adding digoxin to his regimen and he will need 6 to 8 weeks of anticoagulation until another HARDY cardioversion can be attempted. Of note is that the patient remains asymptomatic. He ambulated around the unit with no complaints of chest pain, palpitations, or shortness of breath. He is medically stable for discharge at this time. He was advised to stay off of his activities for 2 weeks and during this time, he will follow up with Dr. 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 He was advised to check his weight daily, to contact his PCP if he gains more than 3 pounds. The patient is medically stable for discharge at this time to follow up as outpatient. Although, the patient has a new diagnosis of systolic CHF, this appears to be compensated at this time. I think a diuretic is not indicated at this time, but the patient was educated about the symptoms of CHF exacerbation that should prompt his visit to the emergency room. PHYSICAL EXAMINATION: Vital Signs: Temperature 98.8, heart rate is 97, respiratory rate is 16, oxygen saturation 98% on room air, and blood pressure is 115/75. General: The patient is a pleasant gentleman sitting up in bed, in no acute distress. CVS: Normal S1 and S2. Irregularly irregular. Chest: Breath sounds present bilaterally, no added sounds. Abdomen is soft, bowel sounds are present. Extremities: No edema. Neuro: He is alert and oriented x3. Able to move all 4 extremities. DIET: Heart-healthy diet. The patient was advised to avoid caffeine. ACTIVITIES: The patient was advised to avoid excessive physical exertion. DISPOSITION: To home. STATUS WHILE IN THE HOSPITAL: Inpatient. Please keep in mind this is a summarized version of the patient's hospital stay. If you need more information, please feel free to call me at [phone] or please obtain the full medical records. TIME SPENT: Approximately 50 minutes were spent to complete this discharge. [id number]/[facility] #: [id number] MTDD
== END 2016-12-28 15:40 | disposition home or self-care (01) | DRG 201 ==
LOC: ED 17:49 → MEDTELE 23:09 → OBSVTOIN 12-27 14:15
PROVIDERS: ADMIT Internal Medicine; ATTEND Internal Medicine
PROC: B24BZZ4 Ultrasonography of Heart with Aorta, Transesophageal (ICD-10-PCS; principal; 2016-12-28 12:00)
DX: I48.91 Unspecified atrial fibrillation (principal); I50.20 Unspecified systolic (congestive) heart failure; I42.9 Cardiomyopathy, unspecified; Q23.1 Congenital insufficiency of aortic valve; R40.2412 Glasgow coma scale score 13-15, at arrival to emergency department; I35.0 Nonrheumatic aortic (valve) stenosis; E78.5 Hyperlipidemia, unspecified; I51.3 Intracardiac thrombosis, not elsewhere classified; Z82.49 Family history of ischemic heart disease and other diseases of the circulatory system; Z83.3 Family history of diabetes mellitus
CPT/HCPCS: 36415; 80053; 83605; 83735; 83880; 84443; 84484; 85025; 85610; 86618; 93005; 93306; 93312; 93325; 99156; 99157; A9270-GY; G0378; J1644; J2250; J2310; J3010

== ENCOUNTER 2017-01-02 09:49 | Inpatient (IN) | payer BC ==
[2017-01-02 10:41] LABS: Hematocrit 52 % (42-52); Hemoglobin 17.4 g/dl (14.0-18.0); Mean Corpuscular HGB Conc 34 g/dl (31-36); Mean Corpuscular Hemoglobin 30 pg (27-31); Mean Corpuscular Volume 89 fL (80-94); Mean Platelet Volume 9 um3 (7.4-10.4); Red Blood Count 5.81 10^6/ul (4.0-5.4); Red Cell Distribution Width 14 % (10.5-15); White Blood Count 5.5 10^3/ul (3.5-10.8)
[2017-01-02 10:54] LABS: Albumin 4.4 g/dL (3.2-5.2); BUN/Creatinine Ratio 20.9 (8-20); EGFR African American 110.1 (>60); EGFR Non-African American 85.6 (>60); Globulin 2.9 g/dL (2-4); Magnesium 2.1 mg/dL (1.9-2.7); Potassium 4.2 mmol/L (3.5-5.0); Total Bilirubin 0.8 mg/dL (0.2-1.0); Total Protein 7.3 g/dL (6.4-8.9)
--- NOTE | 2017-01-02 11:17 | RAD ---
HISTORY: Chest pain COMPARISONS: October 14, 2004 VIEWS:1: Single frontal portable view of the chest at 10:55 AM FINDINGS: LINES AND TUBES: None. CARDIOMEDIASTINAL SILHOUETTE: The cardiomediastinal silhouette is normal for portable technique. PLEURA: The costophrenic angles are sharp. No pleural abnormalities are noted. LUNG PARENCHYMA: The lungs are clear. ABDOMEN: The upper abdomen is clear. There is no subphrenic gas. BONES AND SOFT TISSUES: No bone or soft tissue abnormalities are noted. IMPRESSION: NO ACTIVE CARDIOPULMONARY DISEASE.
[2017-01-02] MEDS ORDERED: Aspirin Low Dose CHEW TAB* 81 MG PO ONE (11:45)
--- NOTE | 2017-01-02 11:46 | ED ---
Janey De Dios Rebecca, scribed for Porfirio Frost MD on 01/02/17 at 1031 . HPI Chest Pain - HPI Summary HPI Summary: Pt is a 56 y/o M who presents to ED accompanied by his c/o CP. Pain began suddenly last night at midnight, waking him up from sleep, and has improved since onset. Pain is characterized as diffuse tightness and is currently moderate, ranked 4/10. Sx aggravated by exertion and deep breaths, alleviated by nothing, unchanged by arm movement. After waking 1.5 miles with his this morning, the pain was slightly worse. Additionally c/o slight diaphoresis, nausea and R thigh cramping. Denies SOB, vision changes, speech changes, weakness, fever, chills. Is on Eliquis. Manifest Clerk is Dr. Baker. Pt was evaluated by [facility] on 12/26 after being referred by his PCP for an abnormal EKG where he was given a Dx of A Fib, probable left atrial appendage clot and CHF. 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 Negative: Weakness, Shortness of Breath, Fever, Chills - Additional Pertinent History Primary Care Physician: [id number] - Allergy/Home Medications Allergies/Adverse Reactions: Allergies Allergy/AdvReac Type Severity Reaction Status Date / Time No Known Allergies Allergy Verified 01/02/17 09:53 PMH/Surg Hx/FS Hx/Imm Hx Endocrine/Hematology History: Denies: Hx Diabetes, Hx Thyroid Disease Cardiovascular History: Reports: Hx Atrial Fibrillation, Hx Congestive Heart Failure, Other Cardiovascular Problems/Disorders - rheumatic fever as a child, probable left atrial appendage clot Denies: Hx Hypertension Respiratory History: Denies: Hx Asthma, Hx Chronic Obstructive Pulmonary Disease (COPD) GI History: Denies: Hx Ulcer Sensory History: Reports: Hx Contacts or Glasses Denies: Hx Hearing Aid Opthamlomology History: Reports: Hx Contacts or Glasses Infectious Disease History: Denies: Hx Hepatitis, Hx Human Immunodeficiency Virus (HIV), Traveled Outside the [place] in Last 30 Days - Family History Known Family History: Negative: Hypertension - Social History Alcohol Use: Occasionally Substance Use Type: Reports: None Smoking Status (MU): Never Smoked Tobacco Review of Systems Positive: Skin Diaphoresis - slight. Negative: Fever, Chills Positive: Other - NEGATIVE: vision changes Positive: Other - NEGATIVE: speech changes Positive: Chest Pain - Tightness Negative: Shortness Of Breath Positive: Nausea Positive: Myalgia - R thigh cramping Negative: Weakness All Other Systems Reviewed And Are Negative: Yes Physical Exam Triage Information Reviewed: Yes Vital Signs On Initial Exam: Initial Vitals Temp Pulse Resp BP Pulse Ox 97.7 F 68 16 125/99 96 01/02/17 09:53 01/02/17 09:53 01/02/17 09:53 01/02/17 09:53 01/02/17 09:53 Vital Signs Reviewed: Yes Appearance: Positive: Well-Appearing, No Pain Distress Skin: Positive: Warm Head/Face: Positive: Normal Head/Face Inspection ENT: Positive: Normal ENT inspection Neck: Positive: Supple Respiratory/Lung Sounds: Positive: Clear to Auscultation, Breath Sounds Present Cardiovascular: Positive: RRR. Negative: Murmur Abdomen Description: Positive: Nontender Musculoskeletal: Positive: Normal, Strength/ROM Intact. Negative: Edema Left, Edema Right Neurological: Positive: Sensory/Motor Intact, Alert, Oriented to Person Place, Time, CN Intact II-III Psychiatric: Positive: Normal Diagnostics - Vital Signs Vital Signs Temp Pulse Resp BP Pulse Ox 01/02/17 09:53 97.7 F 68 16 125/99 96 - Laboratory Lab Results: Lab Results 01/02/17 Range/Units 10:13 WBC 5.5 (3.5-10.8) 10^3/ul RBC 5.81 H (4.0-5.4) 10^6/ul Hgb 17.4 (14.0-18.0) g/dl Hct 52 (42-52) % MCV 89 (80-94) fL MCH 30 (27-31) pg MCHC 34 (31-36) g/dl RDW 14 (10.5-15) % Plt Count 240 (150-450) 10^3/ul MPV 9 (7.4-10.4) um3 Neut % (Auto) 55.6 (38-83) % Lymph % (Auto) 29.7 (25-47) % Door % (Auto) 11.9 H (1-9) % Eos % (Auto) 1.7 (0-6) % Baso % (Auto) 1.1 (0-2) % Absolute Neuts (auto) 3.0 (1.5-7.7) 10^3/ul Absolute Lymphs (auto) 1.6 (1.0-4.8) 10^3/ul Absolute Monos (auto) 0.7 (0-0.8) 10^3/ul Absolute Eos (auto) 0.1 (0-0.6) 10^3/ul Absolute Basos (auto) 0.1 (0-0.2) 10^3/ul Absolute Nucleated RBC 0 10^3/ul Nucleated RBC % 0 Result Diagrams: 01/02/17 10:13 01/02/17 10:13 Lab Statement: Any lab studies that have been ordered have been reviewed, and results considered in the medical decision making process. - Radiology CXR Xray Interpretation: No Acute Changes - NO ACTIVE CARDIOPULMONARY DISEASE. Radiology Interpretation Completed By: Radiologist - EKG 1026 Cardiac Rate: NL - 82 bpm EKG Rhythm: Atrial Fibrillation EKG Interpretation: No STEMI Re-Evaluation - Re-Evaluation First Eval Re-Evaluation Time: 11:39 Comment: Discussed admission with the pt. Chest Pain Course/Dx - Course Course Of Treatment: 56 yr old male with chest tightness, in afib still, has known clots in atria, and also low LV EF. DW Dr Baker, cardiology: the patient does not want to be discharged. He wants to be ruled out and have definitive eval while he is here. DW Dr Abbott, and she is aware of need for stress test and or cath this stay. - Diagnoses Provider Diagnoses: Chest pain - Provider Notifications Discussed Care Of Patient With: Gisele Baker Time Discussed With Above Provider: 11:32 Instructed by Provider To: Other - Advised a 6 hour troponin and admission. Discussed care of pt with Dr. Sue Abbott who accepts pt for admission. Discharge - Discharge Plan Condition: Good Disposition: ADMITTED TO [facility] Referrals: Warren Wolf PRODUCT MARKETING ANALYST [Primary Care Provider] - The documentation as recorded by the Janey peters Rebecca accurately reflects the service I personally performed and the decisions made by , Porfirio Frost MD.
[2017-01-02] MEDS ORDERED: traZODone TAB* 100 MG PO PRN (12:32)
[2017-01-02] MEDS ORDERED: Acetaminophen TAB* 325 MG PO PRN (12:36)
[2017-01-02] MEDS ORDERED: Furosemide IV* 10 MG/ML 2 ML VIAL (20 MG) IV ONE (12:36)
[2017-01-02] MEDS ORDERED: PROCHLORPERAZINE INJ 5 MG/ML 2 ML VIAL IV PRN (12:36)
[2017-01-02] MEDS ORDERED: Nitroglycerin TAB 0.4 MG* 0.4 MG TAB SL PRN (12:36)
[2017-01-02 12:51] LABS: Digoxin 0.8 ng/ml (0.8-2.0)
--- NOTE | 2017-01-02 14:53 | HP ---
CC: Warren Wolf NP; Dr. Baker. * HISTORY AND PHYSICAL: DATE OF ADMISSION: 01/02/17 TIME OF EVALUATION: 11:55 a.m. PRIMARY CARE PROVIDER: Warren Wolf NP. [employer] OPERATOR: Dr. Baker. CHIEF COMPLAINT: Chest pressure. HISTORY OF PRESENT ILLNESS: Mr. Salazar is a 56-year-old male familiar to me from his prior admission to [facility] from 12/26/16 to 12/28/16. At that time, he carried no past medical history, but during the admission, he was found to be in atrial fibrillation with rapid ventricular rate, was found to have a probable left atrial appendage clot, systolic congestive heart failure with ejection fraction of 20% to 25%, bicuspid aortic valve. During that admission, the patient was asymptomatic. His atrial fibrillation was actually an incidental finding during a regular physical exam with his PCP. He had no complaints of chest pain, palpitations, shortness of breath at that time. His workup included an echocardiogram that showed global hypokinesis of the left ventricle with ejection fraction to 20% to 25% with bicuspid aortic valve showing moderate aortic stenosis. The initial plan was for rate control followed by a HARDY cardioversion, but the HARDY showed spontaneous echo contrast in the last atrial cavity and appendage +4 smoke and echodense structure noted between the lower third of the last atrial appendage suggestive of thrombus, so for that reason, cardioversion was not performed. The patient was started on TERE inhibitor, beta christina, digoxin, and the plan was for anticoagulation with apixaban for 6 to 8 weeks and then attempt HARDY cardioversion once more. The patient states that he was doing well at home. He has not returned to work. He is avoiding any strenuous exertion, but he was able to walk a mile of day with his with no symptoms. He says that last night, he had salmons and vegetables for dinner and later on had some indigestion, but he was able to sleep with no problems. Around midnight, he woke up to go to the bathroom with complaints of diffuse chest pressure. He states that it is not severe enough to call a pain, but he gestures like someone is squeezing his chest. He states that initially the feeling was mild 2-3/10 and he decided to sleep on a chair. Later on, he woke up feeling better, returned to his bed and around 5, he went for his walk with his and he was feeling well. After returning from the walk, he states that the squeezing sensation was back, this time more intense 5/10 intensity and at that point he decided to come to the emergency room for further evaluation. He denies shortness of breath, palpitations, dizziness, lightheadedness, or any other complaints. PAST MEDICAL HISTORY: 1. Atrial fibrillation. 2. Left atrial appendage thrombus. 3. Systolic congestive heart failure with ejection fraction 20% to 25%. 4. Bicuspid aortic valve. 5. History of rheumatic fever in childhood. MEDICATION LIST: 1. Trazodone 100 mg p.o. at bedtime as needed for insomnia. 2. Lovaza 4 g p.o. daily. 3. Lisinopril 5 mg p.o. daily. 4. Digoxin 0.25 mg p.o. daily. 5. Coreg 6.25 mg p.o. b.i.d. 6. Apixaban 5 mg p.o. b.i.d. ALLERGIES: No known drug allergies. FAMILY HISTORY: His mother is 82, alive and well. His father at age 75 of heart disease, but he does not know exactly. SOCIAL HISTORY: He denies any tobacco or drug use. He drinks alcohol socially. 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 Surrogate decision maker is his , Mariah Salazar, phone number is [phone]. REVIEW OF SYSTEMS: A 14-point review of systems was performed and all the pertinent negative and positive findings are in the HPI. PHYSICAL EXAMINATION GENERAL: The patient is a pleasant gentleman, sitting up in ER stretcher, in no acute distress. VITAL SIGNS: Temperature 97.7, heart rate is 76, respiratory rate is 16, oxygen saturation is 94% on room air, blood pressure is 102/90. HEENT: Pupils are equal. Moist mucous membranes. CHEST: Breath sounds bilaterally with bibasilar rales. CVS: Normal S1, S2. Irregular irregular. ABDOMEN: Soft, nontender, nondistended. No hepatosplenomegaly. EXTREMITIES: No edema. NEURO: He is alert, awake, and oriented x3. Able to move all 4 extremities. LABORATORY AND IMAGING DATA: The patient had a CBC that showed a WBC of 5.5, hemoglobin of 17.4, hematocrit of 52, and platelet of 240 with 55% neutrophils. INR is 1.1. Chemistry was grossly unremarkable with normal potassium at 4.2, normal magnesium of 2.1, first troponin was 0, and BNP was 121. Digoxin level was pending at the time of this dictation. Chest x-ray was read as no active cardiopulmonary disease. EKG done on 01/02/17 at 10:26 a.m. shows atrial fibrillation at 82 beats per minute with T-wave inversions/flattening in III and aVF. Those findings are similar to his prior EKG from 12/26/16, but at that time, his atrial fibrillation rate was faster. ASSESSMENT AND PLAN: Mr. Salazar is a 56-year-old male with a past medical history of recently diagnosed atrial fibrillation, left atrial appendage thrombus, systolic congestive heart failure with ejection fraction 20% to 25%, bicuspid aortic valve with a recent admission for atrial fibrillation with rapid ventricular rate, who presents to the emergency room with complaints of chest pressure. 1. Chest pressure, rule out acute coronary syndrome. The initial plan was for the patient to continue rate control as outpatient and to attempt HARDY cardioversion again in 6 to 8 weeks if his thrombus was resolved. After that, he would undergo an ischemic workup including stress test and possible cardiac cath if indicated. As the patient returns now with symptoms, the plan is to have admitted to telemetry and we are going to rule out acute coronary syndrome with serial troponins. I discussed the case with Dr. Baker. At this point, since he is having new symptoms, we are going to perform an exercise nuclear Myoview stress test tomorrow and depending on that pursue a heart cath or not. For now, I am going to continue his usual medications. 2. Mild systolic congestive heart failure exacerbation. Although the patient denies shortness of breath, I suspect part of his chest tightness "squeezing sensation" could be associated with congestive heart failure. His BNP was not that elevated, but he does have rales in both bases, so he will get gentle diuresis with furosemide. 3. DVT prophylaxis. The patient has a score of 2 on the DVT Prophylaxis Risk Assessment Guide and he is already anticoagulated with apixaban. 4. Code status is full. TIME SPENT: Approximately 60 minutes was spent for this patient and interview, medical records review, physical examination to complete this admission. More than half the time was spent [id number] with the patient in coordination of care. [id number]/[facility] #: [id number] MINH
[2017-01-02] MEDS: Carvedilol TAB* 6.25 MG PO SCH (20:26)
[2017-01-02] MEDS ORDERED: Carvedilol TAB* 6.25 MG PO SCH (21:00)
[2017-01-02] MEDS: Apixaban* 5 MG TAB PO SCH (22:04)
[2017-01-03] MEDS ORDERED: Lisinopril TAB* 5 MG PO SCH (09:00)
--- NOTE | 2017-01-03 11:16 | RAD ---
Edited for charges. INDICATION: Chest pain. Abnormal EKG. COMPARISON: No relevant prior exams available on the [facility] for comparison. TECHNIQUE: 10.570 mCi of Tc-99m Myoview were administered IV. SPECT images of the heart were obtained. Later on the same day. Under the direction of Dr. Baker, an exercise stress test was performed. The patient achieved a peak heart rate of 139 bpm, 85 % of the age- predicted maximum. Subsequently, the patient was given an IV injection of 25.770 mCi Tc- 99m Myoview. SPECT images of the heart were obtained and a gated wall motion study was performed. FINDINGS: Gated wall motion images were obtained at stress and demonstrate global hypokinesia. The calculated left ventricular ejection fraction is 33 % at stress. Estimated LEFT ventricular end diastolic volume is 141 mL. TID 0.95. Small perfusion defect at the apex at stress with partial reversal at rest most consistent with a small infarct with coy-infarct ischemia. No additional LEFT ventricular myocardial perfusion abnormalities. IMPRESSION: 1. Dilated cardiomyopathy with severe LEFT ventricular dysfunction with estimated LVEF of 33%. This appears discordant with noted fair to good exercise tolerance. Correlate with clinical assessment. 2. Probable small infarct with coy-infarct ischemia at the apex. ASSESSMENT: High risk Based on imaging criteria from ACC/AHA 2002 Guideline Update for the Management of Patients With Chronic Stable Angina Table 23. Noninvasive Risk Stratification. MTDD
[2017-01-03] MEDS: Lisinopril TAB* 5 MG PO SCH (11:24)
[2017-01-03] MEDS: Apixaban* 5 MG TAB PO SCH (11:24)
[2017-01-03] MEDS: Carvedilol TAB* 6.25 MG PO SCH ×2 (11:24→22:04)
[2017-01-03] MEDS: Digoxin TAB* 0.25 MG PO SCH (11:24)
--- NOTE | 2017-01-03 14:31 | PN ---
Subjective Date of Service: 01/03/17 Interval History: HOSPITALIST PROGRESS NOTE Patient seen and examined at bedside. Chest pressure is resolved, denies dyspnea or palpitations. Had some dyspnea during stress test, but felt is was "normal when walking fast". Later on HR whent up to 170 while walking to the bathroom and he was asymptomatic. Family History: Unchanged from Admission Social History: Unchanged from Admission Past Medical History: Unchanged from Admission Objective Active Medications: Acetaminophen (Tylenol Tab*) 650 mg PO Q6H PRN PRN Reason: pain/fever Carvedilol (Coreg Tab*) 6.25 mg PO BID [facility] Last Admin: 01/03/17 11:24 Dose: 6.25 mg Digoxin (Lanoxin Tab*) 0.25 mg PO DAILY [facility] Last Admin: 01/03/17 11:24 Dose: 0.25 mg Enoxaparin Sodium (Lovenox(*)) 85 mg SUBCUT Q12H [facility] Lisinopril (Prinivil Tab*) 5 mg PO DAILY [facility] Last Admin: 01/03/17 11:24 Dose: 5 mg Prochlorperazine Edisylate (Compazine Inj*) 5 mg IV Q6H PRN PRN Reason: NAUSEA/VOMITING Trazodone HCl (Desyrel Tab*) 100 mg PO BEDTIME PRN PRN Reason: SLEEP Vital Signs 01/03/17 01/03/17 01/03/17 03:56 07:31 11:21 Temperature 97.6 F 97.5 F 97.7 F Pulse Rate 95 51 80 Respiratory 20 16 16 Rate Blood Pressure 108/74 131/98 109/68 (mmHg) O2 Sat by Pulse 97 100 99 Oximetry Oxygen Devices in Use Now: None Appearance: Pleasat gentleman sitting up in bed in NAD. Eyes: No Scleral Icterus Ears/Nose/Mouth/Throat: Mucous Membranes Moist Neck: Trachea Midline Respiratory: Symmetrical Chest Expansion and Respiratory Effort, Clear to Auscultation Cardiovascular: - - Normal S1 and S2, irregularly irregular Abdominal: NL Sounds; No Tenderness; No Distention Extremities: No Edema Neurological: Alert and Oriented x 3, NL Muscle Strength and Tone Lines/Tubes/Other Access: Clean, Dry and Intact Peripheral IV Nutrition: Taking PO's Result Diagrams: 01/02/17 10:13 01/02/17 10:13 Assess/Plan/Problems-Billing Assessment: Mr. Salazar is a 56yo M with PMH of systolic CHF, Afib, JANESSA thrombus, bicuspid AV, who presented to ED with c/o chest pressure, found to be in mild systolic CHF exacerbation. - Patient Problems (1) Systolic CHF Comment: - Mild acute exacerbation at this time. Responded well to low dose Furosemide - chest pressure is resolved, lungs are clear. - BP is on the lower side, so I don't think he's a candidate for daily diuretics - may benefit of a tailored regimen, maybe twice a week or PRN weight gain. - Echo on prior admission showed EF 20-25% with global hypokinesis, bicuspid AV with moderate stenosis. - Continue Coreg and Lisinopril. (2) Chest pressure Comment: - Serial troponins were negative. - Stress test showed dilated CMP with severe LV dysfunction with EF 33%. Probable small infarct with coy-infarct ischemia at the apex. - D/w Cardiology - will switch Eliquis to Lovenox in prepparation for possible cath 01/05/17. (3) Atrial fibrillation with RVR Comment: - Rate is better controlled now after receiving Coreg and Digoxin. - Will continue to monitor. - AC with Lovenox. (4) DVT prophylaxis Comment: - Lovenox. (5) Full code status Status and Disposition: Change to inpatient as patient will require >48h for stabilization. updated at bedside.
[2017-01-03] MEDS: Enoxaparin(*) 100 MG/ML SYR SUBCUT SCH (22:04)
--- NOTE | 2017-01-04 03:50 | CONS ---
CC: Warren Wolf NP; Hospitalist Service * CARDIOLOGY CONSULTATION: DATE OF CONSULT: 01/03/17 CHIEF COMPLAINT: Chest pain. HISTORY OF PRESENT ILLNESS: Mr. Salazar is a 56-year-old gentleman, I met last week, who was found to be in asymptomatic atrial fibrillation at his doctor's office and was referred to the hospital for evaluation. Workup last week revealed that his ejection fraction was very depressed around 25% to 30%, his aortic valve appeared bicuspid with [id number] stenosis and the initial plan was for transesophageal echo-guided cardioversion; however, he was unable to get the cardioversion due to probable clot in the left atrial appendage and evidence of Rouleaux formation and he was sent home on medical management ( lisinopril 5 mg a day, Coreg 6.25 mg b.i.d., digoxin 0.25 mg a day, and apixaban 5 mg b.i.d.) The patient initially did well, going home; however, 2 nights ago, the patient awoke with chest pain and some mild shortness of breath , then the next day he walked about a mile and this led to additional chest pain. He presented to the emergency department for these symptoms and troponins were negative and he was admitted for observation. He has felt better since being admitted to the hospital and he did receive IV Lasix in the emergency department yesterday. Today, the patient underwent an exercise stress test and he only had fair exercise ability. He got short of breath and winded, but his chest pain was not reproduced. Currently he is feeling well, seated at his bedside. PAST MEDICAL HISTORY: 1. Recently diagnosed atrial fibrillation, uncertain duration. 2. Cardiomyopathy, severe, 20% to 25%, type unknown. 3. Bicuspid aortic valve with moderate aortic stenosis. 4. Congestive heart failure. 5. Rheumatic fever as a child. MEDICATIONS: Current inpatient medications include: 1. Tylenol p.r.n. 2. Eliquis 5 mg b.i.d. 3. Coreg 6.25 mg b.i.d. 4. Lisinopril 5 mg a day. 5. Compazine p.r.n. 6. Trazodone 100 mg p.r.n. sleep. 7. Digoxin 0.25 mg a day. ALLERGIES: No known drug allergies. FAMILY HISTORY: Significant in that his father at age 75 of heart disease , type unknown. Mother is 82 and healthy. SOCIAL HISTORY: The patient works at [employer] and [employer]. Has a supportive . Drinks some alcohol socially. Nonsmoker. No recreational drug use. REVIEW OF SYSTEMS: Negative for any recent high-salt foods. He did have some indigestion following the dinner and preceding the chest pain, pressure. No recent changes in bowel or bladder habits. No recent fevers, chills, sweats. No orthopnea or PND. All other review of systems is negative. PHYSICAL EXAM: The patient's vital signs on arrival to the emergency department : Blood pressure 134/88, pulse 106, respiratory rate 16. He is afebrile and oxygen saturation 95% on room air. Currently, his heart rate 88, blood pressure 102/72, respiratory rate 16, oxygen saturation 98%, and he is afebrile. The patient is a fit appearing older middle-aged gentleman, seated, in no acute distress. Psychologically, calm, cooperative, pleasant. Neurologically, awake, alert, oriented to person, place, and time. Cranial nerves II through XII intact. Grossly normal sensory and motor function in the upper and lower extremities and normal gait. Skin: Warm and dry, freckled. No cyanosis or rashes. HEENT: Pupils are equal and round. Mucous membranes moist. Tongue midline. Neck: Without appreciable increase in JVP. Good carotid pulses. Free of bruits. Lungs: Clear with good effort. No wheezes, rales, or rhonchi. Coronary: S1, S2. Irregularly irregular. Soft systolic murmur, mid peaking heard in the right upper sternal border. Abdomen: Soft and nontender. No hepatomegaly appreciated. Extremities: Lower extremities were free of edema. DIAGNOSTIC STUDIES/LAB DATA: Lyme titer from 12/27/16 is negative. White count 5.5, hemoglobin 17.4, hematocrit 52, platelets 240,000. INR 0.94. Sodium 137, potassium 4.2, chloride 105, bicarb 25, BUN 19, creatinine 0.91, glucose 106. Magnesium 2.1. ALT of 46. Troponin #1 of 0.00, troponin #2 of 0.00, troponin #3 of 0.00. TSH 1.37. Digoxin level is 0.8. Studies: 1. Transthoracic echo from 12/26/16, shows mild left ventricular hypertrophy with an ejection fraction of 20% to 25%, right ventricular hypertrophy, bicuspid aortic valve with moderate aortic valve stenosis, mean gradient 7 mmHg , aortic valve area 1 sq cm, dimensionless index 0.34, mild aortic insufficiency , mild tricuspid insufficiency, moderate dilatation of the ascending aorta, 4 cm. 2. Transesophageal echo from 12/28/16 showed an ejection fraction of 20% to 25% , spontaneous echo contrast in the left atrium and appendage, 4+ smoke, echodense structures in the lower one-third of the left atrial appendage, mild aortic stenosis, trace aortic insufficiency, trace mitral and trace tricuspid insufficiency, moderate dilatation of the ascending aorta. 3. Exercise nuclear study done today showed only fair exercise capacity. His AFib ventricular rate craig rapidly with walking. He had no significant ST changes. The nuclear portion of the study showed a dilated ventricle with an ejection fraction of 33%. A small apical infarct with coy-infarct ischemia noted and the ventricle was dilated. IMPRESSION: In summary, Mr. Salazar is a 56-year-old gentleman, found to be in atrial fibrillation earlier this month, of which he had been asymptomatic, although in hindsight, diaphoresis with chores was new this summer. He was found to have severe cardiomyopathy and Coreg, TERE inhibitors, anticoagulation, and digoxin were initiated and several days after discharge, the patient was readmitted with chest discomfort, sleeping and walking, which appears to have resolved with Lasix. The patient has had negative troponins on 2 admissions. His nuclear stress test has a small area in the apex that does not perfuse well and the rest of the myocardium shows good perfusion, but the ventricle is dilated with an ejection fraction of 33%. My gut feeling is the patient has a nonischemic cardiomyopathy related to the AFib and rapid rates, but I think it is important to know going forward if he has ischemic versus nonischemic cardiomyopathy. I recommended cardiac catheterization, which will entail coming off his Eliquis , converting to Lovenox and holding this the day before the procedure. The alternative would be of not doing a heart cath and medically managing him could put us in a position where doing a heart cath could delay cardioversion or compromise anticoagulation postcardioversion and be at even higher risk than now (the patient should be anticoagulated for a month postcardioversion prior to coming off for procedures ideally.) In the interim, the patient continues to have a tachycardic response. On his last admission, he did not respond well to pure beta-christina, but one option would be to see if he has better rate control on Toprol versus Coreg and potentially, we could leave him off an TERE inhibitor and increase beta-christina, either Coreg or Toprol and then give him low-dose spironolactone instead of the lisinopril to decrease the chance of recurrent congestive heart failure. The patient's bicuspid valve could also be tighter than has been estimated on transthoracic echo, but the transesophageal echo gives us a very good 2 dimensional image and we could go back and see if we could planimeter this to ensure that bicuspid aortic valve stenosis is not contributing more than I had appreciated on transthoracic echo last week. Thank you for allowing me to assist in this nice gentleman's care. [id number]/[facility] #: [id number] MINH
[2017-01-04] MEDS ORDERED: Aspirin Low Dose CHEW TAB* 81 MG PO ONE (06:00)
[2017-01-04] MEDS: Enoxaparin(*) 100 MG/ML SYR SUBCUT SCH (09:25)
[2017-01-04] MEDS: Digoxin TAB* 0.25 MG PO SCH (09:41)
[2017-01-04] MEDS: Lisinopril TAB* 5 MG PO SCH (09:43)
[2017-01-04] MEDS: Carvedilol TAB* 6.25 MG PO SCH ×2 (09:43→20:30)
--- NOTE | 2017-01-04 11:44 | PN ---
Subjective Date of Service: 01/04/17 Interval History: HOSPITALIST PROGRESS NOTE Patient seen and examined at bedside. He feels well today, offers no complaints. Family History: Unchanged from Admission Social History: Unchanged from Admission Past Medical History: Unchanged from Admission Objective Active Medications: Acetaminophen (Tylenol Tab*) 650 mg PO Q6H PRN PRN Reason: pain/fever Carvedilol (Coreg Tab*) 6.25 mg PO BID [facility] Last Admin: 01/04/17 09:43 Dose: 6.25 mg Digoxin (Lanoxin Tab*) 0.25 mg PO DAILY [facility] Last Admin: 01/04/17 09:41 Dose: 0.25 mg Enoxaparin Sodium (Lovenox(*)) 85 mg SUBCUT Q12H [facility] Last Admin: 01/04/17 09:25 Dose: 85 mg Lisinopril (Prinivil Tab*) 5 mg PO DAILY [facility] Last Admin: 01/04/17 09:43 Dose: 5 mg Prochlorperazine Edisylate (Compazine Inj*) 5 mg IV Q6H PRN PRN Reason: NAUSEA/VOMITING Trazodone HCl (Desyrel Tab*) 100 mg PO BEDTIME PRN PRN Reason: SLEEP Vital Signs 01/04/17 11:42 Temperature 97.9 F Pulse Rate 34 Respiratory 16 Rate Blood Pressure 107/84 (mmHg) O2 Sat by Pulse 96 Oximetry Oxygen Devices in Use Now: None Appearance: Pleasant gentleman sitting up in a chair in [facility]. Eyes: No Scleral Icterus Ears/Nose/Mouth/Throat: Mucous Membranes Moist Neck: Trachea Midline Respiratory: Symmetrical Chest Expansion and Respiratory Effort, Clear to Auscultation Cardiovascular: - - Normal S1 and S2 Extremities: No Edema Neurological: Alert and Oriented x 3, NL Muscle Strength and Tone Lines/Tubes/Other Access: Clean, Dry and Intact Peripheral IV Nutrition: Taking PO's Result Diagrams: 01/02/17 10:13 01/02/17 10:13 Assess/Plan/Problems-Billing Assessment: Mr. Salazar is a 56yo M with PMH of systolic CHF, Afib, JANESSA thrombus, bicuspid AV, who presented to ED with c/o chest pressure, found to be in mild systolic CHF exacerbation. - Patient Problems (1) Systolic CHF Comment: - Mild acute exacerbation at this time. Responded well to low dose Furosemide - chest pressure is resolved, lungs are clear. - BP is on the lower side, so I don't think he's a candidate for daily diuretics - may benefit of a tailored regimen, maybe twice a week or PRN weight gain. - Echo on prior admission showed EF 20-25% with global hypokinesis, bicuspid AV with moderate stenosis. - Continue Coreg and Lisinopril. (2) Chest pressure Comment: - Serial troponins were negative. - Stress test showed dilated CMP with severe LV dysfunction with EF 33%. Probable small infarct with coy-infarct ischemia at the apex. - D/w Cardiology - will switch Eliquis to Lovenox in preparation for cath . (3) Atrial fibrillation with RVR Comment: - Rate is better controlled. - AC with Lovenox. (4) DVT prophylaxis Comment: - Lovenox. (5) Full code status Status and Disposition: Change to inpatient as patient will require >48h for stabilization. updated at bedside.
[2017-01-04] MEDS ORDERED: Diazepam TAB(*) 5 MG PO SCH (18:19)
[2017-01-04] MEDS ORDERED: diPHENhydraMINE PO* 25 MG PO SCH (18:19)
[2017-01-04] MEDS ORDERED: Aspirin TAB* 325 MG PO ONE (18:30)
[2017-01-04] MEDS ORDERED: Enoxaparin(*) 100 MG/ML SYR SUBCUT ONE (22:00)
[2017-01-05 05:32] LABS: BUN/Creatinine Ratio 18.8 (8-20); Calcium 9.7 mg/dL (8.6-10.3); EGFR African American 97.6 (>60); EGFR Non-African American 75.9 (>60); Potassium 4.7 mmol/L (3.5-5.0)
[2017-01-05] MEDS ORDERED: Aspirin Low Dose CHEW TAB* 81 MG PO ONE (06:00)
[2017-01-05] MEDS ORDERED: NS 0.9% 1000 ML* 1,000 ML IV SCH ×2 (07:00→13:15)
[2017-01-05] MEDS: Lisinopril TAB* 5 MG PO SCH (08:55)
[2017-01-05] MEDS: Digoxin TAB* 0.25 MG PO SCH (08:55)
[2017-01-05] MEDS: Carvedilol TAB* 6.25 MG PO SCH (08:55)
[2017-01-05] MEDS ORDERED: VERAPAMIL 2.5 MG/ML 4 ML VIAL ONE (11:39)
[2017-01-05] MEDS ORDERED: Heparin(*) 1000 UNIT/ML 10 ML VIAL CATH LAB IV ONE (11:39)
[2017-01-05] MEDS ORDERED: Midazolam* 1 MG/ML 5 ML VIAL (5 MG) ONE (11:39)
[2017-01-05] MEDS ORDERED: fentaNYL* 50 MCG/ML 2 ML VIAL (100 MCG VIAL) ONE (11:39)
[2017-01-05] MEDS ORDERED: nitroGLYCERIN DRIP* 250 ML ONE (11:40)
[2017-01-05] MEDS ORDERED: Heparin 2 UNITS/ML IVPREMIX* 2,000 ML IV ONE (11:40)
[2017-01-05] MEDS ORDERED: Iohexol 350 (CONTRAST) 200 ML MDV IV ONE (11:40)
[2017-01-05] MEDS ORDERED: Lidocaine 1% INJ* 10 MG/ML 30 ML SDV ONE (11:40)
[2017-01-05 18:08] VITALS: BP 90/55
--- NOTE | 2017-01-06 10:55 | DS ---
CC: Warren Wolf NP; Dr. Baker DISCHARGE SUMMARY: DATE OF ADMISSION: 01/02/17 DATE OF DISCHARGE: 01/05/17 DISCHARGE DIAGNOSIS: Acute systolic congestive heart failure exacerbation. SECONDARY DIAGNOSES: 1. Atrial fibrillation. 2. Left atrial appendage thrombus. 3. Systolic congestive heart failure with ejection fraction of 20% to 25%. 4. Bicuspid aortic valve. 5. History of rheumatic fever in childhood. MEDICATION LIST: 1. Apixaban 5 mg p.o. b.i.d., to be resumed tonight. 2. Carvedilol 6.25 mg p.o. b.i.d. 3. Digoxin 0.25 mg p.o. daily. 4. Lisinopril 5 mg p.o. daily. 5. Lovaza 4 g p.o. daily. 6. Trazodone 100 mg p.o. at bedtime as needed for insomnia. NEW MEDICATIONS: 1. Furosemide 20 mg p.o. daily as needed for weight gain greater than 3 pounds, chest pressure, and shortness of breath. 2. Potassium chloride 10 mEq p.o. daily as needed when you take furosemide. HOSPITAL COURSE: Mr. Salazar is a 56-year-old male with past medical history as stated above, well known to me from a prior admission to [facility] from 12/26/16 to 12/28/16. At that time, he was found to have newly diagnosed atrial fibrillation with a probable left atrial appendage clot, systolic conges tive heart failure with ejection fraction of 20% to 25%. He was asymptomatic and all those findings had been incidental as he went through a regular physical exam and was found to be in atrial fibril lation. He was discharged home with the plan of 6 to 8 weeks of anticoagulation and then follow up with Dr. Baker for another HARDY and possible cardioversion at that time. The patient states he was initially doing well, continued to be asymptomatic. He was walking 1 mile with his daily, but the day prior to admission, he woke up with complaints of diffuse chest pr essure that progressed during the day and he decided to come to the emergency room for further evalu ation. On physical examination, he was found to have bibasilar rales and the impression was that his chest pressure was likely associated with acute systolic congestive heart failure. He was admitted for further management. Serial troponins were negative and the patient underwent an exercise nuclear medicine stress test that showed dilated cardiomyopathy with severe left ventricul ar dysfunction with estimated LVEF of 33%. Probable small infarct with coy-infarct ischemia at the apex. The patient was seen in consultation by Cardiology (Dr. Baker) and her impression was that the pat erich is a 56-year-old gentleman found to be in atrial fibrillation earlier this month, for which he had been asymptomatic, although in hindsight, diaphoresis with chores was new this summer. He was f ound to have severe cardiomyopathy and Coreg, TERE inhibitor, anticoagulation, and digoxin were initi ated. Several days after discharge, the patient was readmitted with chest discomfort, which appears to have resolved with Lasix. The patient had negative troponins. His nuclear stress test has a sm all area in the apex that does not perfuse well and the rest of the myocardium shows good perfusion, but the ventricle is dilated with an ejection fraction of 33%. Her gut feeling is that the patient has a nonischemic cardiomyopathy related to atrial fibrillation and rapid rate, but she thought it was important to know going forward if he has ischemic versus nonischemic cardiomyopathy. She recom mended cardiac catheterization, which entailed coming off his Eliquis, converge with Lovenox and hol ding it the day prior to procedure. The alternative would be not doing a heart cath and medically m anaging him, would put us in a position where doing a heart cath could delay cardioversion or compro mise anticoagulation post cardioversion and be at an even higher risk than now. She also thought th at if he continued to have tachycardia, an option would be to change his Coreg to Toprol and dependi ng on his blood pressure, even potentially leave him off an TERE inhibitor and increase the beta bloc ker, but we were actually able to continue both medications with an acceptable blood pressure. The patient underwent a cardiac cath on 01/05/[address] Cedillo and he was found to have no signifi cant CAD, so the impression is that the patient has nonischemic cardiomyopathy, likely secondary to his atrial fibrillation. The patient is asymptomatic. The patient was asymptomatic and I believe the symptoms that brought h im in are likely secondary to CHF exacerbation, but he does not have enough blood pressure room to b e on a daily diuretic and I do not even think he requires a daily diuretic. So, the idea is to send him home on furosemide/potassium chloride as needed if he gains more than 3 pounds or if he develop s the chest pressure/shortness of breath, like he did before. The patient is medically stable to be discharged home today to follow up with Cardiology on 01/11/17 . PHYSICAL EXAMINATION: Vital Signs: Temperature 97.6, heart rate is 68, respiratory rate is 16, oxy gen saturation is 99% on room air, blood pressure is 110/60. General: The patient is a pleasant ge ntleman sitting up in bed in no acute distress. CVS: Normal S1, S2. Irregularly irregular. Chest : Breath sounds present bilaterally, no added sounds. Abdomen: Soft, bowel sounds are present. E xtremities: No edema. Neuro: He is alert, awake and oriented x3. Able to move all 4 extremities. DIET: Heart healthy diet, avoid caffeine. ACTIVITY: As tolerated. The patient is advised to stay off his work until he is cleared by Cardiol ogy. DISPOSITION: To home. STATUS WHILE IN THE HOSPITAL: Inpatient. The patient received Cardiology education regarding his post cath activity. Please keep in mind this is a summarized version of the patient's hospital stay. If you need more in formation, please feel free to call me at [phone] or please obtain the full medical records. TIME SPENT: Approximately 45 minutes was spent to complete this discharge. [id number]/[facility] #: [id number]
--- NOTE | 2017-01-09 10:14 | CATH ---
CC: Warren Wolf NP; Dr. Baker CATH REPORT: DATE OF PROCEDURE: 01/05/17 PRIMARY CARE PHYSICIAN: Warren Wolf NP INTEGRITY SPECIALIST: Dr. Baker. PROCEDURE: Right radial artery access, bilateral selective coronary cineangiography. HISTORY: A 56-year-old male with atrial fibrillation, LV systolic dysfunction with EF of 20% to 25% , and moderate aortic stenosis. Stress imaging showed an apical mixed defect, EF 33%. PROCEDURE ACCESS: Right radial artery sheath, 6-F slender. MEDICATIONS: 1. Subcu lidocaine. 2. IV Versed. 3. IV fentanyl. 4. Heparin 3000 units. 5. Verapamil 3 mg. 6. Nitroglycerin 300 mcg. IV volume loading. DIAGNOSTIC CATHETERS: A 5-FL 3.5, 5-FR 4. LV gram was not performed as I was unable to cross the a ortic valve using a pigtail with an 0.035 ZIPwire after more than 5 minutes. He received IV saline volume loading for asymptomatic hypotension after sedation and the radial cocktail. Initial BP 118/77, final BP 89/58, asymptomatic. ANGIOGRAPHY: Left Main: The left main is large, has no stenosis. Incidentally noted is visible ca lcification of the aortic leaflets with decreased excursion. LAD: The LAD is large, has scattered mild luminal irregularity, the mid LAD has systolic bridging w hich is usually of no clinical consequence. Mid LAD supplies a large diagonal branch. Circumflex: The circumflex is moderate, not dominant, with a moderate first and second marginal, en ds with a smaller posterolateral. The circumflex has mild luminal irregularity but no significant s tenosis. RCA: The RCA is large, dominant, with a moderate PDA and two small posterolaterals, the RCA has no stenosis. CONCLUSION: 1. No significant obstructive coronary artery disease. 2. Successful right radial artery access. [id number]/[facility] #: [id number]
== END 2017-01-05 19:45 | disposition home or self-care (01) | DRG 191 ==
LOC: ED 09:49 → MEDTELE 11:41 → OBSVTOIN 14:19 → INTOOBSV 14:19 → OBSVTOIN 01-03 14:19
PROVIDERS: ADMIT Internal Medicine; ATTEND Internal Medicine
PROC: 4A12XM4 Monitoring of Cardiac Stress, External Approach (ICD-10-PCS; principal; 2017-01-03)
PROC: 4A023N7 Measurement of Cardiac Sampling and Pressure, Left Heart, Percutaneous Approach (ICD-10-PCS; 2017-01-05)
DX: I50.23 Acute on chronic systolic (congestive) heart failure (principal); I42.0 Dilated cardiomyopathy; I48.91 Unspecified atrial fibrillation; I35.0 Nonrheumatic aortic (valve) stenosis; Z82.49 Family history of ischemic heart disease and other diseases of the circulatory system; Z72.89 Other problems related to lifestyle; I51.3 Intracardiac thrombosis, not elsewhere classified; Z79.01 Long term (current) use of anticoagulants
CPT/HCPCS: 36415; 71010; 78452; 80048; 80053; 80162; 83605; 83735; 83880; 84484; 85025; 85610; 93005; 93017; 93454; 99156; 99157; A9270-GY; A9502; C1769; G0378; J1644; J1650; J1940; J2001; J2250; J3010

== ENCOUNTER 2017-04-23 06:38 | Day surgery (SDC) | payer BC ==
[2017-04-23] MEDS ORDERED: Aspirin Low Dose CHEW TAB* 81 MG PO ONE (06:57)
[2017-04-23 07:27] LABS: ALT 34 U/L (7-52); Albumin 4.3 g/dL (3.2-5.2); Alkaline Phosphatase 66 U/L (34-104); BUN/Creatinine Ratio 16.2 (8-20); Blood Urea Nitrogen 16 mg/dL (6-24); CO2 Carbon Dioxide 29 mmol/L (22-32); Chloride 104 mmol/L (101-111); EGFR African American 99.9 (>60); EGFR Non-African American 77.6 (>60); Globulin 2.8 g/dL (2-4); Glucose 109 mg/dL (70-100); Sodium 139 mmol/L (133-145); Total Protein 7.1 g/dL (6.4-8.9)
[2017-04-23 07:29] LABS: Troponin I 0.01 ng/mL (<0.04)
[2017-04-23 07:50] LABS: Hematocrit 48 % (42-52); Hemoglobin 16.1 g/dl (14.0-18.0); Mean Corpuscular HGB Conc 34 g/dl (31-36); Mean Corpuscular Hemoglobin 30 pg (27-31); Mean Corpuscular Volume 89 fL (80-94); Mean Platelet Volume 9 um3 (7.4-10.4); Red Blood Count 5.43 10^6/ul (4.0-5.4); Red Cell Distribution Width 15 % (10.5-15); White Blood Count 6.8 10^3/ul (3.5-10.8)
[2017-04-23 07:58] LABS: Lipase 78 U/L (11.0-82.0)
--- NOTE | 2017-04-23 08:32 | RAD ---
Indication: Chest pain. Rheumatic fever childhood. Probable LEFT atrial appendage thrombus. Comparison: January 02, 2017 Technique: Upright AP 0715 hours Report: Clear lungs and pleural spaces. Negative for pneumothorax. The heart, pulmonary vasculature, and mediastinal contours are unremarkable. Unremarkable osseous structures and soft tissue contours. IMPRESSION: No evidence for acute intrathoracic disease.
[2017-04-23 08:34] LABS: Anion Gap 6 mmol/L (2-11)
--- NOTE | 2017-04-23 10:03 | ED ---
Jalil De Dios Angela, scribed for Imtiaz Hodgson MD on 04/23/17 at 0722 . HPI Chest Pain - HPI Summary HPI Summary: This pt is a 56 y/o male presenting to [facility] c/o left sided chest pain since yesterday. Yesterday it was mild chest pain, but upon waking up today pt has more severe chest pain on the left. He reports feeling slightly SOB. His pain was rated 4/10 in severity at 08:55 this morning. His pain does not radiate and is characterized as a dull pain. His pain was aggravated by exertion (carrying something from his basement). Pt denies nausea, vomiting, diaphoresis, calf pain. In December, pt was diagnosed with atrial fibrillation. He states he had a cardioversion in . He denies rashes, diarrhea, rhinorrhea, cough, fever , chills. He is currently on Sotalol, Lisinopril, and Eliquis. Pt takes Eliquis twice a day, he has not taken his morning dose today. PMHx of atrial fibrillation, GERD (many years ago). His last stress test and cardiac catheterization was in December 2016. His donation worker is Dr. Baker. - History of Current Complaint Chief Complaint: EDChestPainROMI Time Seen by Provider: 04/23/17 07:14 Hx Obtained From: Patient Onset/Duration: Started Days Ago - 1 Timing: Constant, Lasting Days - 1 Initial Severity: Mild Current Severity: Moderate Pain Intensity: 4 Pain Scale Used: 0-10 Numeric Chest Pain Location: Left Anterior Chest Pain Radiates: No Character: Dull/Aching - dull Aggravating Factor(s): Exertion Alleviating Factor(s): Nothing Associated Signs and Symptoms: Positive: Chest Pain, Shortness of Breath. Negative: Nausea, Cough, Calf Pain/Swelling, Vomiting, Edema - Additional Pertinent History Primary Care Physician: [id number] - Allergy/Home Medications Allergies/Adverse Reactions: Allergies Allergy/AdvReac Type Severity Reaction Status Date / Time No Known Allergies Allergy Verified 01/02/17 09:53 Home Medications: Home Medications Multivitamins/Minerals TAB* [Theragran/minerals TAB*] 1 tab PO EVERY OTHER DAY 04/23/17 [History Confirmed 04/23/17] Sotalol TAB* [Betapace 80 MG TAB*] 40 mg PO BID 04/23/17 [History Confirmed 03/30] PMH/Surg Hx/FS Hx/Imm Hx Endocrine/Hematology History: Denies: Hx Diabetes, Hx Thyroid Disease Cardiovascular History: Reports: Hx Atrial Fibrillation, Hx Congestive Heart Failure, Other Cardiovascular Problems/Disorders - rheumatic fever as a child, probable left atrial appendage clot Denies: Hx Hypertension Respiratory History: Denies: Hx Asthma, Hx Chronic Obstructive Pulmonary Disease (COPD) GI History: Denies: Hx Ulcer Sensory History: Reports: Hx Contacts or Glasses - at home; will bring in Denies: Hx Hearing Aid Opthamlomology History: Reports: Hx Contacts or Glasses - at home; will bring in Infectious Disease History: No Infectious Disease History: Denies: Hx Hepatitis, Hx Human Immunodeficiency Virus (HIV), Traveled Outside the [place] in Last 30 Days - Family History Known Family History: Negative: Hypertension - Social History Alcohol Use: Weekly Alcohol Amount: Occasional weekends Substance Use Type: Reports: None Smoking Status (MU): Never Smoked Tobacco Review of Systems Negative: Fever, Chills, Skin Diaphoresis Negative: Nasal Discharge Positive: Chest Pain Positive: Shortness Of Breath. Negative: Cough Negative: Vomiting, Diarrhea, Nausea Skin: Negative All Other Systems Reviewed And Are Negative: Yes Physical Exam - Summary Physical Exam Summary: General: Mildly anxious, no pain distress Skin: warm, color reflects adequate perfusion, dry Head: normal Eyes: EOMI, ANABELLA ENT: normal Neck: supple, nontender Respiratory: CTA, breath sounds present Cardiovascular: Irregularly irregular rate and rhythm Abdomen: soft, nontender Bowel: present Musculoskeletal: normal, strength/ROM intact Neurological: normal, sensory/motor intact, A&O x3 Psychological: Mildly anxious Triage Information Reviewed: Yes Vital Signs On Initial Exam: Initial Vitals Temp Pulse Resp BP Pulse Ox 96 F 75 18 113/75 97 04/23/17 06:41 04/23/17 06:41 04/23/17 06:41 04/23/17 06:41 04/23/17 06:41 Vital Signs Reviewed: Yes - Makenzie Coma Scale Coma Scale Total: 15 Diagnostics - Vital Signs Vital Signs Temp Pulse Resp BP Pulse Ox 04/23/17 06:41 96 F 75 18 113/75 97 - Laboratory Lab Results: Lab Results 04/23/17 04/23/17 04/23/17 Range/Units 06:52 06:52 06:52 WBC 6.8 (3.5-10.8) 10^3/ul RBC 5.43 H (4.0-5.4) 10^6/ul Hgb 16.1 (14.0-18.0) g/dl Hct 48 (42-52) % MCV 89 (80-94) fL MCH 30 (27-31) pg MCHC 34 (31-36) g/dl RDW 15 (10.5-15) % Plt Count 251 (150-450) 10^3/ul MPV 9 (7.4-10.4) um3 Neut % (Auto) 56.4 (38-83) % Lymph % (Auto) 29.0 (25-47) % [place] % (Auto) 11.8 H (1-9) % Eos % (Auto) 2.1 (0-6) % Baso % (Auto) 0.7 (0-2) % Absolute Neuts (auto) 3.9 (1.5-7.7) 10^3/ul Absolute Lymphs (auto) 2.0 (1.0-4.8) 10^3/ul Absolute Monos (auto) 0.8 (0-0.8) 10^3/ul Absolute Eos (auto) 0.1 (0-0.6) 10^3/ul Absolute Basos (auto) 0 (0-0.2) 10^3/ul Absolute Nucleated RBC 0.01 10^3/ul Nucleated RBC % 0.2 INR (Anticoag Therapy) (0.77-1.02) D-Dimer, Quantitative (Less Than 230) ng/mL Sodium 139 (133-145) mmol/L Potassium TNP Chloride 104 (101-111) mmol/L Carbon Dioxide 29 (22-32) mmol/L Anion Gap 6 (2-11) mmol/L BUN 16 (6-24) mg/dL Creatinine 0.99 (0.67-1.17) mg/dL Est GFR ( Amer) 99.9 (>60) Est GFR (Non-Af Amer) 77.6 (>60) BUN/Creatinine Ratio 16.2 (8-20) Glucose 109 H (70-100) mg/dL Lactic Acid 1.3 (0.5-2.0) mmol/L Calcium 10.0 (8.6-10.3) mg/dL Total Bilirubin 0.60 (0.2-1.0) mg/dL AST TNP ALT 34 (7-52) U/L Alkaline Phosphatase 66 (34-104) U/L Troponin I 0.01 (<0.04) ng/mL C-Reactive Protein 3.30 (< 5.00) mg/L B-Natriuretic Peptide ( - 100) pg/mL Total Protein 7.1 (6.4-8.9) g/dL Albumin 4.3 (3.2-5.2) g/dL Globulin 2.8 (2-4) g/dL Albumin/Globulin Ratio 1.5 (1-3) Lipase 78 (11.0-82.0) U/L 04/23/17 04/23/17 Range/Units 06:52 06:52 WBC (3.5-10.8) 10^3/ul RBC (4.0-5.4) 10^6/ul Hgb (14.0-18.0) g/dl Hct (42-52) % MCV (80-94) fL MCH (27-31) pg MCHC (31-36) g/dl RDW (10.5-15) % Plt Count (150-450) 10^3/ul MPV (7.4-10.4) um3 Neut % (Auto) (38-83) % Lymph % (Auto) (25-47) % [place] % (Auto) (1-9) % Eos % (Auto) (0-6) % Baso % (Auto) (0-2) % Absolute Neuts (auto) (1.5-7.7) 10^3/ul Absolute Lymphs (auto) (1.0-4.8) 10^3/ul Absolute Monos (auto) (0-0.8) 10^3/ul Absolute Eos (auto) (0-0.6) 10^3/ul Absolute Basos (auto) (0-0.2) 10^3/ul Absolute Nucleated RBC 10^3/ul Nucleated RBC % INR (Anticoag Therapy) 0.94 (0.77-1.02) D-Dimer, Quantitative 245 H (Less Than 230) ng/mL Sodium (133-145) mmol/L Potassium Chloride (101-111) mmol/L Carbon Dioxide (22-32) mmol/L Anion Gap (2-11) mmol/L BUN (6-24) mg/dL Creatinine (0.67-1.17) mg/dL Est GFR ( Amer) (>60) Est GFR (Non-Af Amer) (>60) BUN/Creatinine Ratio (8-20) Glucose (70-100) mg/dL Lactic Acid (0.5-2.0) mmol/L Calcium (8.6-10.3) mg/dL Total Bilirubin (0.2-1.0) mg/dL AST ALT (7-52) U/L Alkaline Phosphatase (34-104) U/L Troponin I (<0.04) ng/mL C-Reactive Protein (< 5.00) mg/L B-Natriuretic Peptide 438 H ( - 100) pg/mL Total Protein (6.4-8.9) g/dL Albumin (3.2-5.2) g/dL Globulin (2-4) g/dL Albumin/Globulin Ratio (1-3) Lipase (11.0-82.0) U/L Result Diagrams: 04/23/17 06:52 04/23/17 06:52 Lab Statement: Any lab studies that have been ordered have been reviewed, and results considered in the medical decision making process. - Radiology Chest XR Xray Interpretation: No Acute Changes - IMPRESSION: No evidence for acute intrathoracic disease. Dr. Hodgson has reviewed this radiology report. Radiology Interpretation Completed By: Radiologist - EKG 0651 Cardiac Rate: NL EKG Rhythm: Atrial Fibrillation - at [address] Segment: Normal Chest Pain Course/Dx - Course Course Of Treatment: Medications reviewed. Dr. Wilcox, donation worker, came to see the pt in the ED. He reports the pt would like cardioversion. Pt will be discharged to have cardioversion in Dr. Wilcox's office today. NO CRITICAL CARE TIME. - Diagnoses Provider Diagnoses: Chest pain, Afib - Provider Notifications Discussed Care Of Patient With: Arnoldo Wilcox Time Discussed With Above Provider: 09:16 Instructed by Provider To: Other - I discussed the pt's case with Dr. Wilcox, who will come see the pt in the ED. Discharge - Discharge Plan Condition: Stable Disposition: HOME Patient Education Materials: A-fib (Atrial Fibrillation) (ED), Chest Pain (ED) Referrals: Warren Wolf NP [Primary Care Provider] - Additional Instructions: FOLLOW UP WITH CARDIOLOGY TODAY. RETURN TO THE EMERGENCY DEPARTMENT FOR ANY WORSENING OF YOUR CONDITION; PAIN, SHORTNESS OF BREATH, YOU FEEL ILL OR QUESTIONS OR CONCERNS. The documentation as recorded by the Jalil peters Angela accurately reflects the service I personally performed and the decisions made by me, Imtiaz Hodgson MD.
[2017-04-23 10:04] VITALS: BP 103/63
[2017-04-23] MEDS ORDERED: Naloxone* 0.4 MG/ML 1 ML VIAL ONE (10:20)
[2017-04-23] MEDS ORDERED: Flumazenil* 0.1 MG/ML 5 ML MDV ONE (10:20)
[2017-04-23] MEDS ORDERED: fentaNYL* 50 MCG/ML 2 ML VIAL (100 MCG VIAL) ONE (10:20)
[2017-04-23] MEDS ORDERED: Midazolam* 1 MG/ML 10 ML VIAL (10 MG) ONE (10:21)
--- NOTE | 2017-04-23 11:11 | CONS ---
CC: Dr. Gisele Baker; Warren Wolf NP * CARDIOLOGY CONSULTATION DATE OF CONSULT: 04/23/2017 - [facility] CATH INDICATION FOR CONSULTATION: Atrial fibrillation. HISTORY OF PRESENT ILLNESS: The patient is a 56-year-old gentleman with a history of atrial fibrillation and history of bicuspid aortic valve who came to the emergency room because of chest pain. The patient states that yesterday he started having atypical chest pain. Also noted that he was back in atrial fibrillation. He noted that his heart was irregular. He denied any shortness of breath. He denied any lightheadedness, dizziness or syncope. He decided to come to the emergency room this morning. On arrival to the emergency room, he was in atrial fibrillation with controlled ventricular response. He denied any significant change in his chest pain not associated with exertion, not associated with meals. It has been constant since yesterday. PAST MEDICAL HISTORY: Significant for nonischemic cardiomyopathy with an ejection fraction of 30 percent. He did have a cardiac catheterization in December which showed normal coronary arteries. He also has a history of bicuspid aortic valve. OUTPATIENT MEDICATIONS: 1. Sotalol 40 mg b.i.d. 2. Lasix 20 mg as needed. 3. Eliquis 5 mg b.i.d. 4. Lisinopril 5 mg a day. 5. Trazodone 50 mg at bedtime. 6. Multivitamin a day. 7. Potassium 10 mEq when he takes Furosemide. ALLERGIES: No known drug allergies. FAMILY HISTORY: Father of heart disease at 75. Mother is alive and well at 82. SOCIAL HISTORY: He is . He works at a correctional facility. He denies tobacco or alcohol use. He tries to exercise regularly. He drinks decaffeinated coffee. REVIEW OF SYSTEMS: Negative for fevers and chills. Negative for changes in bowel or bladder habits. Negative for change in weight. Other 12 point review is unremarkable. PHYSICAL EXAM: Vital Signs: Height 5'10", weight 193 pounds, temperature 96, heart rate 82 and irregular, blood pressure 113/75, respiratory rate 18, oxygen saturation 97 percent on 2 liters. HEENT: Sclerae are anicteric. Oropharynx is pink without erythema. Neck: Carotids are 2+ without bruits. JVD is normal. Thyroid is normal. Cardiac exam: S1, S2 without any murmurs, rubs or gallops. Lungs: Clear to auscultation bilaterally. There is no dullness in percussion. Abdomen: Soft, nontender, nondistended with normoactive bowel sounds. Extremities: No edema. He has 2+ pulses throughout. Neuro: The patient is awake, alert and oriented. He moves all four extremities equally. DIAGNOSTIC STUDIES/LAB DATA: CBC within normal limites. Chemistries within normal limits. BUN 16, creatinine 0.99. AST and ALT are within normal limits. Initial troponin level is 0.01. BNP is minimally elevated at 438. D-dimer is minimally elevated at 245. EKG demonstrates atrial fibrillation. IMPRESSION: This is a 56-year-old gentleman with a history of paroxysmal atrial fibrillation. His last episode of atrial fibrillation was in the end of February. RECOMMENDATIONS: For now, my recommendation is that the patient undergo cardioversion and see Dr. Baker in follow-up. At that time, she may decide to increase his Sotalol to 80 mg b.i.d., switch to a different antiarrhythmic, or consider ablated procedure. [id number]/[facility] #: [id number] [facility]
--- NOTE | 2017-04-23 11:20 | CARD ---
CC: Dr. Baker * CARDIOVERSION NOTE: DATE OF PROCEDURE: 04/23/17 - [facility] CATH PROCEDURE: Cardioversion. INDICATION: Atrial fibrillation. HISTORY: The patient is a 56-year-old gentleman with a history of paroxysmal atrial fibrillation, nonischemic cardio-myopathy. The patient noted the onset of chest pain and irregular heartbeat yesterday. He came to the emergency room this morning and was in atrial fibrillation with controlled ventricular response. The patient continued to have mild chest pain. His troponins were unremarkable. His other workup was normal. Cardioversion was recommended. PROCEDURE IN DETAIL: The patient was in a fasting state. Informed consent had been obtained prior to the procedure. All labs were reviewed. The patient is on sotalol and Eliquis for his atrial fibrillation. The patient was given 5 mg of Versed and 50 mcg of fentanyl for conscious sedation. The patient was cardioverted with 150 joules of synchronized biphasic energy. The patient converted to normal sinus rhythm. The patient tolerated the procedure well with no complications. The patient will follow up with Dr. Baker as an outpatient. [id number]/[facility] #: [id number] [facility]
== END 2017-04-23 10:10 | disposition home or self-care (01) ==
LOC: ED 06:38 → CHICATH 10:10 → ED 10:12
PROVIDERS: ATTEND Specialist
DX: I48.0 Paroxysmal atrial fibrillation (principal); Z79.01 Long term (current) use of anticoagulants; I50.9 Heart failure, unspecified; I42.9 Cardiomyopathy, unspecified; Q23.1 Congenital insufficiency of aortic valve; Z82.49 Family history of ischemic heart disease and other diseases of the circulatory system; R94.31 Abnormal electrocardiogram [ECG] [EKG]
CPT/HCPCS: 36415; 71010; 80053; 83605; 83690; 83880; 84484; 85025; 85379; 85610; 86140; 92960; 93005; 96374; 99156; 99157; 99283; A9270-GY; J2250; J2310; J3010

== ENCOUNTER → 2017-05-23 11:51 | Day surgery (SDC) | payer BC ==
[~2017-05-23 11:51] MED LIST: Flumazenil* 0.1 MG/ML 5 ML MDV ONE; Midazolam* 1 MG/ML 10 ML VIAL (10 MG) ONE; Naloxone* 0.4 MG/ML 1 ML VIAL ONE; fentaNYL* 50 MCG/ML 2 ML VIAL (100 MCG VIAL) ONE
[2017-05-23 13:55] LABS: ABS Basophils 0 10^3/ul (0-0.2); ABS Eosinophils 0.1 10^3/ul (0-0.6); ABS Lymphocytes 2.4 10^3/ul (1.0-4.8); ABS Monocytes 0.7 10^3/ul (0-0.8); ABS Neutrophils 2.8 10^3/ul (1.5-7.7); ABS Nucleated RBC 0 10^3/ul; Hematocrit 42 % (42-52); Hemoglobin 14.2 g/dl (14.0-18.0); Lymphocyte % 39.7 % (25-47); Mean Corpuscular HGB Conc 34 g/dl (31-36); Mean Corpuscular Hemoglobin 30 pg (27-31); Mean Corpuscular Volume 89 fL (80-94); Mean Platelet Volume 8 um3 (7.4-10.4); Nucleated Red Blood Cells % 0.1; Platelet Count 269 10^3/ul (150-450); Red Blood Count 4.72 10^6/ul (4.0-5.4); Red Cell Distribution Width 14 % (10.5-15); White Blood Count 6.1 10^3/ul (3.5-10.8)
--- NOTE | 2017-05-23 17:03 | CONS ---
CC: Dr. Baker * CARDIOLOGY EVALUATION: DATE OF CONSULT: 05/23/17 - [facility] PATIENT OF: Dr. Baker. HISTORY OF PRESENT ILLNESS: This is a 56-year-old gentleman with a history of atrial fibrillation and cardiomyopathy. He presented with atrial fibrillation and low EF. Back in February, he had had a cardioversion. He had a subsequent cardioversion on 03/08/17, and according to the patient, was started Betapace at that time. He had improvement in his LV function, but had another episode of AFib in April requiring cardioversion on 04/23/[address] Wilcox. He saw Dr. Baker and there was consideration of changing him to Tikosyn or considering EP consultation if he had recurrent AFib. The patient said that he has been avoiding caffeine and alcohol. He did have an upper respiratory infection over the weekend on the 05/19/17, 05/20/17, and 05/21/17. He said that he woke up yesterday morning on 05/22/17, noted that his heart was irregular based on his blood pressure cuff. He denied any significant associated symptoms to me, but did tell out nurses that he had some mild lightheadedness. Because of those symptoms, he called the office today to report those symptoms and was referred to [facility] for an elective cardioversion. He denies syncope, chest pain, or shortness of breath. No orthopnea or peripheral edema. No alcohol use. No caffeine use. He does drink decaffeinated coffee. He does report that he has had more trouble sleeping lately due to upper airway congestion. I also discussed with his his sleeping patterns and she does report that he snores at night. There is some concern he may have sleep apnea. In addition, he said last week he was using trazodone to help with sleep, but he thinks that it provoked AFib and he stopped it. His AFib converted on its own. NKDA: He denies any allergies. PMH: He has a history of hypertension. Social HX He reports he has been at increased stress at work lately. 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 MEDICATIONS: His current medications include: 1. Sotalol 40 mg twice a day. 2. Apixaban 5 mg twice a day. 3. Lisinopril 5 mg b.i.d. PHYSICAL EXAMINATION: On physical exam, he is a well-developed, well-nourished gentleman, in no apparent distress. Blood pressure is 87/60, pulse in the 70s and irregular. No significant JVD. Carotids 2+. Cardiac Exam: S1, S2 without murmurs, gallops, or rub. Chest was clear. Extremities: No edema. DIAGNOSTIC STUDIES: EKG revealed atrial fibrillation. I did discuss with the patient the risks and benefits of cardioversion and the need to try to address the management of his AFib for the longer term given his multiple recurrences. He understood and agreed to proceed with cardioversion, which was performed. Of note, he was given a fluid bolus of saline 300 cc prior to the cardioversion to try to improve his blood pressure. IMPRESSION: A 56-year-old gentleman with a history of recurrent paroxysmal atrial fibrillation, possible sleep apnea, cardiomyopathy of unclear etiology, possibly alcohol related or tachycardia induced. I did discuss the symptoms, findings, and possible options for treatment. At this point, I recommend a followup on, he is to have CBC and electrolytes and magnesium drawn today as well as a TSH. We will reduce his lisinopril from 5 mg twice a day to 5 mg once a day given his low normal blood pressures. He will be observed for recovery from sedation. I suggest a followup with Dr. Baker to determine whether he is a candidate for EP consult or perhaps to change his antiarrhythmic. I asked him to follow up with Dr. Baker for consideration of evaluation for sleep apnea given his sleep difficulties. Medical decision making, moderately complex. [id number]/[facility] #: [id number] MINH
--- NOTE | 2017-05-23 20:40 | CARD ---
CC: Dr. Baker * PROCEDURE REPORT: DATE OF PROCEDURE: 05/23/17 - [facility] CATH PROCEDURE: Cardioversion. INDICATIONS: This is a 56-year-old gentleman with a history of paroxysmal atrial fibrillation who went into atrial fibrillation yesterday morning, he noted that his heart was irregular on his blood pressure monitor. Because of those symptoms, he called the office today. He had breakfast and finished at about 6:15, he was sent to the hospital for an elective cardioversion. He was fasting. Informed consent was obtained. He was pre-medicated with 5 mg of Versed and 25 mcg of fentanyl. A single biphasic shock of 120 joules was applied with successful conversion to sinus rhythm. IMPRESSION: Successful cardioversion for recurrent paroxysmal atrial fibrillation. The patient is to continue his medications. He is to follow up with Dr. Baker concerning whether a change in his management is warranted. Previously she had considered possibility of changing his antiarrhythmics. Referral for ED. This episode occurred in the setting of a recent cold and upper airway congestion. He thinks he snore at night, this raised the possibility of sleep apnea. I suggested he follow up with Dr. Baker for consideration of evaluation for sleep disorder. [id number]/[facility] #: [id number] [facility]
== END | disposition home or self-care (01) ==
LOC: CHICATH 11:51
PROVIDERS: ATTEND Internal Medicine Cardiovascular Disease
DX: I48.0 Paroxysmal atrial fibrillation (principal); I42.9 Cardiomyopathy, unspecified; I35.0 Nonrheumatic aortic (valve) stenosis
CPT/HCPCS: 36415; 80048; 83735; 84443; 85025; 92960; 93005; 99156; J2250; J2310; J3010

== ENCOUNTER 2017-06-04 08:38 | Inpatient (IN) | payer BC ==
--- OUTSIDE RECORDS SUMMARY | 2017-06-04 08:46 | XMS REPORT ---
:1960 External Reference #:[id number] Author Organization [facility] Address [address] [address] Phone [phone] Care Team Providers Name Role Phone Warren Wolf NP Primary Care Physician Unavailable Payers Type Date Identification Numbers Payment Provider Subscriber Commercial Policy Number: [id number] [facility] Nitin Martin PayID: [id number] [address] [place] [address] Problems Date Description Provider Status Onset: 12/28/2016 Cardiomyopathy LOVE Stewart Active Onset: 12/28/2016 Atrial fibrillation LOVE Stewart Active Onset: 12/27/2016 Bicuspid aortic valve LOVE Stewart Active Family History Date Family Member(s) Problem(s) Comments : (age 75 Years) Father due to Heart Disease Onset: (age 82 Years) Mother Alive And Well As of 2016 Social History Type Date Description Comments Marital Status Occupation Currently Working Occupation [employer] Cigarette Use Never Smoked Cigarettes ETOH Use Occasionally consumes beer Fri and Sat. 2 -3 per day Smoking Patient has never smoked Recreational Drug Use Denies Drug Use Daily Caffeine Consumes on average 2 cups of decaff coffee per day Exercise Type/Frequency Exercises regularly Allergies, Adverse Reactions, Alerts Date Description Reaction Status Severity Comments 01/11/2017 NKDA active Medications Medication Date Status Form Strength Qnty SIG Indications Ordering Provider Sotalol HCL 02/27/ Active Tablets 80mg 90tabs 1/2 tab by Gisele (AF) 2017 mouth twice [place], a day M.D. Furosemide 00/ Active Tablets 20mg Take One Unknown 0000 Tablet By Mouth Every Day as Needed For Weight Gain Eliquis / Active Tablets 5mg 180tab take one Gisele 0000 s tablet by [place], mouth twice M.D. a day Lisinopril / Active Tablets 5mg 180tab take one Gisele 0000 s tablet twice [place], a day M.D. [id number] / Active Capsules 1gm Take Four Unknown Ethyl Esters 0000 Capsules By Mouth Every Day Trazodone HCL / Active Tablets 50mg Take One To Unknown 0000 Two Tablets By Mouth At Bedtime prn Multi Vitamin / Active Tablets 1 by mouth Unknown 0000 every other day Potassium / Active Tablets ER 10Meq 1 by mouth Unknown Chloride Carleen 0000 with ER furosemide Potassium / Hx Tablets ER 20Meq Take One Unknown Chloride Carleen 0000 - Tablet By ER 01/11/ Mouth Every 2016 Day as Needed If You Take Furosemide Carvedilol / Hx Tablets 6.25mg 180tab take one Gisele 0000 - s tablet by [place], 02/26/ mouth twice M.D. 2016 a day Digoxin / Hx Tablets 250mcg 90tabs take one Gisele 0000 - tablet by [place], 02/25/ mouth every M.D. 2016 day Vital Signs Date Vital Result Comment 05/08/2017 Height 69.5 inches 5'9.50" Weight 196.50 lb no shoes Heart Rate 72 /min BP Systolic Sitting 100 mmHg Rue reg cuff BP Diastolic Sitting 72 mmHg Rue reg cuff BP Systolic Standing 98 mmHg E=Rue reg cuff BP Diastolic Standing 74 mmHg E=Rue reg cuff Respiratory Rate 16 /min BMI (Body Mass Index) 28.6 kg/m2 Ejection Fraction 45-50% 02/2017 Echo 03/15/2017 Height 69.5 inches 5'9.50" Weight 193.00 lb Heart Rate 56 /min BP Systolic Sitting 102 mmHg Rue reg cuff BP Diastolic Sitting 72 mmHg Rue reg cuff BP Systolic Standing 98 mmHg Rue BP Diastolic Standing 70 mmHg Rue Respiratory Rate 16 /min BMI (Body Mass Index) 28.1 kg/m2 Ejection Fraction 20-25% 12/27/16 03/02/2017 Height 69.5 inches 5'9.50" Weight 194.00 lb Heart Rate 62 /min BP Systolic Sitting 90 mmHg Rue reg cuff BP Diastolic Sitting 50 mmHg Rue reg cuff BP Systolic Standing 92 mmHg Rue reg cuff BP Diastolic Standing 58 mmHg Rue reg cuff Respiratory Rate 16 /min BMI (Body Mass Index) 28.2 kg/m2 02/26/2017 Height 69.5 inches 5'9.50" Weight 195.25 lb Heart Rate 52 /min irregular BP Systolic Sitting 110 mmHg Lue reg cuff BP Diastolic Sitting 70 mmHg Lue reg cuff BP Systolic Standing 110 mmHg Lue reg cuff BP Diastolic Standing 78 mmHg Lue reg cuff Respiratory Rate 16 /min BMI (Body Mass Index) 28.4 kg/m2 01/11/2017 Height 69.5 inches 5'9.50" Weight 193.50 lb w/o shoes Heart Rate 64 /min irreg BP Systolic Sitting 108 mmHg Lue, reg cuff BP Diastolic Sitting 88 mmHg Lue, reg cuff BP Systolic Standing 110 mmHg Lue BP Diastolic Standing 86 mmHg Lue Respiratory Rate 16 /min BMI (Body Mass Index) 28.2 kg/m2 Ejection Fraction 20-25% as of 12/27/2016 echo Results Test Date Test Result H/L Range Note Basic Metabolic Panel 02/26/2017 Sodium 138 mmol/L 133-145 Potassium 4.2 mmol/L 3.5-5.0 Chloride 102 mmol/L 101-111 Co2 Carbon Dioxide 30 mmol/L 22-32 Anion Gap 6 mmol/L 2-11 Glucose 98 mg/dL 70-100 Blood Urea Nitrogen 20 mg/dL 6-24 Creatinine 0.94 mg/dL 0.67-1.17 BUN/Creatinine Ratio 21.3 High 8-20 Calcium 9.5 mg/dL 8.6-10.3 Egfr Non- 82.4 >60 Egfr 106.0 >60 1 Laboratory test finding 02/26/2017 Magnesium 2.1 mg/dL 1.9-2.7 Laboratory test finding 01/24/2017 Digoxin 1.0 ng/ml 0.8-2.0 Basic Metabolic Panel 01/24/2017 Sodium 139 mmol/L 133-145 Potassium 4.3 mmol/L 3.5-5.0 Chloride 101 mmol/L 101-111 Co2 Carbon Dioxide 31 mmol/L 22-32 Anion Gap 7 mmol/L 2-11 Glucose 94 mg/dL 70-100 Blood Urea Nitrogen 19 mg/dL 6-24 Creatinine 0.98 mg/dL 0.67-1.17 BUN/Creatinine Ratio 19.4 8-20 Calcium 10.1 mg/dL 8.6-10.3 Egfr Non- 78.6 >60 Egfr 101.0 >60 2 CBC Auto Diff 01/24/2017 White Blood Count 5.5 10^3/uL 3.5-10.8 Red Blood Count 5.61 10^6/uL High 4.0-5.4 Hemoglobin 16.6 g/dL 14.0-18.0 Hematocrit 50 % 42-52 Mean Corpuscular Volume 89 fL 80-94 Mean Corpuscular Hemoglobin 30 pg 27-31 Mean Corpuscular HGB Conc 33 g/dL 31-36 Red Cell Distribution Width 14 % 10.5-15 Platelet Count 226 10^3/uL 150-450 Mean Platelet Volume 9 um3 7.4-10.4 Abs Neutrophils 2.5 10^3/uL 1.5-7.7 Abs Lymphocytes 2.1 10^3/uL 1.0-4.8 Abs Monocytes 0.7 10^3/uL 0-0.8 Abs Eosinophils 0.1 10^3/uL 0-0.6 Abs Basophils 0.1 10^3/uL 0-0.2 Abs Nucleated RBC 0 10^3/uL Granulocyte % 45.1 % 38-83 Lymphocyte % 38.9 % 25-47 Monocyte % 12.7 % High 1-9 Eosinophil % 2.1 % 0-6 Basophil % 1.2 % 0-2 Nucleated Red Blood Cells % 0.1 Laboratory test finding 01/24/2017 Magnesium 2.0 mg/dL 1.9-2.7 1 Because ethnic data is not always readily available, this report includes an eGFR for both -Americans and non- Americans. The National Kidney Disease Education Program (NKDEP) does not endorse the use of the MDRD equation for patients that are not between the ages of 18 and 70, are , have extremes of body size, muscle mass, or nutritional status, or are non- or non-. According to the National Kidney Foundation, irrespective of diagnosis, the stage of the disease is based on the level of kidney function: Stage Description GFR(mL/min/1.73 m(2)) 1 Kidney damage with normal or decreased GFR 90 2 Kidney damage with mild decrease in GFR 60-89 3 Moderate decrease in GFR 30-59 4 Severe decrease in GFR 15-29 5 Kidney failure <15 (or dialysis) 2 Because ethnic data is not always readily available, this report includes an eGFR for both -Americans and non- Americans. The National Kidney Disease Education Program (NKDEP) does not endorse the use of the MDRD equation for patients that are not between the ages of 18 and 70, are , have extremes of body size, muscle mass, or nutritional status, or are non- or non-. According to the National Kidney Foundation, irrespective of diagnosis, the stage of the disease is based on the level of kidney function: Stage Description GFR(mL/min/1.73 m(2)) 1 Kidney damage with normal or decreased GFR 90 2 Kidney damage with mild decrease in GFR 60-89 3 Moderate decrease in GFR 30-59 4 Severe decrease in GFR 15-29 5 Kidney failure <15 (or dialysis) Procedures Date CPT Code Description Status 05/08/2017 68927 EKG Tracing & Interpretation Completed 04/23/2017 16595 Cardioversion Completed 03/15/2017 21221 EKG Tracing & Interpretation Completed 03/08/2017 71748 Moderate Sedation Services; Same Phys Intl 15 Mins; PT Completed >=5 Years 03/08/2017 75123 EKG, Interpretation Only Completed 03/08/2017 69959 Cardioversion Completed 03/02/2017 09549 EKG Tracing & Interpretation Completed 03/02/2017 31028 EKG Tracing & Interpretation Completed 03/02/2017 12385 EKG Tracing & Interpretation Completed 02/26/2017 67179 EKG Tracing & Interpretation Completed 02/26/2017 73396 EKG Tracing & Interpretation Completed 02/14/2017 41467 Cardioversion Completed 02/14/2017 20302 Echocardiography, Transesophageal, Real Time W/Image 2D Completed W/W/O M-M 02/14/2017 29644 Pulse Wave/Continuous-Interp.RPT Completed 02/14/2017 85430 Color Flow Doppler/Interp & Reprt Completed 02/14/2017 53123 Moderate Sedation Services; Same Phys Intl 15 Mins; PT Completed >=5 Years 02/14/2017 55738 Moderate Sedation Services; Same Phys Each Additional Completed 15 Mins 02/14/2017 84055 EKG, Interpretation Only Completed 01/11/2017 39199 EKG Tracing & Interpretation Completed 01/05/2017 89616 Cath PLMT&NJX L Ventriculog Img S&I Completed 01/04/2017 42295 Treadmill Interp/Report Only Completed 01/04/2017 80511 Stress Test Supervsn W/Out I/R Completed 01/03/2017 60285 Treadmill Interp/Report Only Completed 01/03/2017 17214 Stress Test Supervsn W/Out I/R Completed 12/28/2016 29725 Color Flow Doppler/Interp & Reprt Completed 12/28/2016 17581 Pulse Wave/Continuous-Interp.RPT Completed 12/28/2016 03508 Echocardiography, Transesophageal, Real Time W/Image 2D Completed W/W/O M-M 12/27/2016 48114 ECHO Transthorasic Realtime 2D W Doppler & Color Completed Flow Hosp Encounters Type Date Location Provider CPT E/M Dx Office Visit 05/08/2017 1:00p [facility] LOVE Stewart 14059 I48.0 I42.9 I35.0 Office Visit 03/15/2017 2:15p [facility] Gisele Baker M.D. 44656 I48.0 [facility] I42.9 I35.0 Office Visit 01/11/2017 11:15a [facility] LOVE Stewart 35606 I50.21 I42.9 I48.1 I35.0 I97.610 Office Visit 01/05/2017 1:[facility] Abbott, 52211 R07.89 Hospitalists Deniz I50.21 I48.1 Office Visit 01/04/2017 3:41p [facility] Duarte Gr M.D., 86266 R94.39 [place] [facility] Office Visit 01/04/2017 1:43p [facility]monse Abbott, 36803 R07.89 Hospitalists Deniz I50.21 I48.1 Office Visit 01/03/2017 1:42p [facility], Sue Abbott, 13654 R07.89 Hospitalists M.D. I50.21 I48.1 Office Visit 01/03/2017 11:10a [facility] Gisele Baker M.D. 06079 R07.9 [facility] I42.9 I48.1 Office Visit 01/02/2017 1:42p [facility], 41228 R07.89 Hospitalists MRainaD. I50.21 I48.1 Office Visit 12/28/2016 1:37p [facility], Sue Abbott, 22028 I48.91 Hospitalists M.D. I50.20 Office Visit 12/28/2016 11:10a [facility] Luiz Godfrey, 28588 I48.91 M.DRaina I42.9 Office Visit 12/27/2016 9:37a [facility] Gisele Baker M.D. 54777 I48.91 [facility] Office Visit 12/27/2016 1:[address]p [facility] Sue [facility], 04401 I48.91 Hospitalists M.D. Office Visit 12/26/2016 1:36p [facility], Maycol Segovia M.D. 94649 I48.91 Hospitalists Plan of Care Future Appointment(s):07/06/2017 2:40 pm - Gisele Baker M.D. at [facility]06/29/2017 3:00 pm - [facility] ECHO Schedule at [facility]05/08/2017 - Tsering Kraus, PAI48.0 Paroxysmal atrial uhrkveespfyhV40.9 Cardiomyopathy, unspecifiedFollow up:Echo ordered by Dr. Baker to be scheduled 07/01 to reevaluate EF Followup with Dr. Baker after echo in I35.0 Nonrheumatic aortic (valve) stenosis
--- OUTSIDE RECORDS SUMMARY | 2017-06-04 08:46 | XMS REPORT ---
:1960 External Reference #:[id number] Author Organization [facility] Address [address] [address] Phone [phone] Care Team Providers Name Role Phone Warren Wolf NP Primary Care Physician Unavailable Payers Type Date Identification Numbers Payment Provider Subscriber Commercial Policy Number: [id number] [facility] Nitin Felixpson PayID: [id number] [address] [place] [address] Problems Date Description Provider Status Onset: 12/28/2016 [...] Cigarette Use Never Smoked Cigarettes ETOH Use Denies alcohol use Smoking Patient has never smoked Recreational Drug Use Denies Drug Use Daily Caffeine Consumes on average 2 cups of decaff coffee per day Exercise Type/Frequency Exercises regularly Allergies, Adverse Reactions, Alerts Date Description Reaction Status Severity Comments 01/11/2017 NKDA active Medications Medication Date Status Form Strength Qnty SIG Indications Ordering Provider Carvedilol / Active Tablets 6.25mg 180ta /2 by Giseel 0000 bs mouth twice Olivia, a day M.D. Eliquis / Active Tablets 5mg 180ta take one Gisele 0000 bs tablet by Suncook, mouth twice M.D. a day Lisinopril 00/00/ Active Tablets 5mg 180ta 1 take one Gisele 0000 bs tablet a Suncook, day M.D. [id number] / Active Capsules 1gm Take Four Unknown Ethyl Esters 0000 Capsules By Mouth Every Day Multi Vitamin 0000/ Active Tablets 1 by mouth Unknown 0000 every other day Potassium 00/00/ Active Tablets 20Meq 1 by mouth Unknown Chloride Carleen ER 0000 ER every day Magnesium Oxide / Active Tablets 250mg 1 by mouth Unknown -MG Supplement 0000 every day Diphenhydramine / Active Capsules 25mg 1 tablet by Unknown HCL 0000 mouth at bedtime Sotalol HCL (AF) 02/27/ Hx Tablets 80mg 90tab 1/2 tab by Gisele 2017 - s mouth twice Olivia, 05/28/ a day M.D. 2018 Furosemide / Hx Tablets 20mg Take One Unknown 0000 - Tablet By 05/15/ Mouth Every 2017 Day as Needed For Weight Gain Potassium // Hx Tablets 20Meq Take One Unknown Chloride Carleen ER 0000 - ER Tablet By 01/11/ Mouth Every 2016 Day as Needed If You Take Furosemide Digoxin / Hx Tablets 250mcg 90tab take one Gisele 0000 - s tablet by Olivia, 02/25/ mouth every M.D. 2016 day Trazodone HCL / Hx Tablets 50mg Take One To Unknown 0000 - Two Tablets 05/21/ By Mouth At 2017 Bedtime prn Vital Signs Date Vital Result Comment 05/28/2017 Height 69.5 inches 5'9.50" Weight 196.00 lb Heart Rate 68 /min BP Systolic Sitting 98 mmHg Lue reg cuff BP Diastolic Sitting 72 mmHg Lue reg cuff BP Systolic Standing 94 mmHg Lue BP Diastolic Standing 74 mmHg Lue Respiratory Rate 16 /min BMI (Body Mass Index) 28.5 kg/m2 Ejection Fraction 20-25% 12/27/16 05/08/2017 Height 69.5 inches 5'9.50" Weight 196.50 [...] Test Date Test Result H/L Range Note Laboratory test finding 05/23/2017 TSH (Thyroid Stim 1.21 mcIU/mL 0.34- 5.60 Horm) Basic Metabolic Panel 05/23/2017 Sodium 136 mmol/L 133-145 Potassium 3.8 mmol/L 3.5-5.0 Chloride 105 mmol/L 101-111 Co2 Carbon Dioxide 24 mmol/L 22-32 Anion Gap 7 mmol/L 2-11 Glucose 109 mg/dL High 70-100 Blood Urea Nitrogen 23 mg/dL 6-24 Creatinine 0.75 mg/dL 0.67-1.17 BUN/Creatinine Ratio 30.7 High 8-20 Calcium 9.1 mg/dL 8.6-10.3 Egfr Non- 107.0 >60 Egfr 137.6 >60 1 Laboratory test finding 05/23/2017 Magnesium 1.8 mg/dL Low 1.9-2.7 CBC Auto Diff 05/23/2017 White Blood Count 6.1 10^3/uL 3.5-10.8 Red Blood Count 4.72 10^6/uL 4.0-5.4 Hemoglobin 14.2 g/dL 14.0-18.0 Hematocrit 42 % 42-52 Mean Corpuscular Volume 89 fL 80-94 Mean Corpuscular Hemoglobin 30 pg 27-31 Mean Corpuscular HGB Conc 34 g/dL 31-36 Red Cell Distribution Width 14 % 10.5-15 Platelet Count 269 10^3/uL 150-450 Mean Platelet Volume 8 um3 7.4-10.4 Abs Neutrophils 2.8 10^3/uL 1.5-7.7 Abs Lymphocytes 2.4 10^3/uL 1.0-4.8 Abs Monocytes 0.7 10^3/uL 0-0.8 Abs Eosinophils 0.1 10^3/uL 0-0.6 Abs Basophils 0 10^3/uL 0-0.2 Abs Nucleated RBC 0 10^3/uL Granulocyte % 46.8 % 38-83 Lymphocyte % 39.7 % 25-47 Monocyte % 11.8 % High 1-9 Eosinophil % 1.0 % 0-6 Basophil % 0.7 % 0-2 Nucleated Red Blood Cells % 0.1 Laboratory test finding 02/26/2017 Magnesium 2.1 mg/dL 1.9-2.7 Basic Metabolic Panel 02/26/2017 Sodium 138 mmol/L 133-145 Potassium 4.2 mmol/L 3.5-5.0 Chloride 102 mmol/L 101-111 Co2 Carbon Dioxide 30 mmol/L 22-32 Anion Gap 6 mmol/L 2-11 Glucose 98 mg/dL 70-100 Blood Urea Nitrogen 20 mg/dL 6-24 Creatinine 0.94 mg/dL 0.67-1.17 BUN/Creatinine Ratio 21.3 High 8-20 Calcium 9.5 mg/dL 8.6-10.3 Egfr Non- 82.4 >60 Egfr 106.0 >60 2 Laboratory test finding 01/24/2017 Magnesium 2.0 mg/dL 1.9-2.7 CBC Auto Diff 01/24/2017 White Blood Count [...] 0-2 Nucleated Red Blood Cells % 0.1 Basic Metabolic Panel 01/24/2017 Sodium 139 mmol/L 133-145 Potassium 4.3 mmol/L 3.5-5.0 Chloride 101 mmol/L 101-111 Co2 Carbon Dioxide 31 mmol/L 22-32 Anion Gap 7 mmol/L 2-11 Glucose 94 mg/dL 70-100 Blood Urea Nitrogen 19 mg/dL 6-24 Creatinine 0.98 mg/dL 0.67-1.17 BUN/Creatinine Ratio 19.4 8-20 Calcium 10.1 mg/dL 8.6-10.3 Egfr Non- 78.6 >60 Egfr 101.0 >60 3 Laboratory test finding 01/24/2017 Digoxin 1.0 ng/ml 0.8-2.0 1 Because ethnic data is not always [...] 15-29 5 Kidney failure <15 (or dialysis) 3 Because ethnic data is not always readily [...] dialysis) Procedures Date CPT Code Description Status 05/28/2017 24678 EKG Tracing & Interpretation Completed 05/08/2017 57600 EKG Tracing & Interpretation Completed 04/23/2017 01026 Cardioversion Completed 03/15/2017 05048 EKG Tracing & Interpretation Completed 03/08/2017 69326 Moderate Sedation Services; Same Phys Intl 15 Mins; PT Completed >=5 Years 03/08/2017 04149 EKG, Interpretation Only Completed 03/08/2017 38721 Cardioversion Completed 03/02/2017 99466 EKG Tracing & Interpretation Completed 03/02/2017 66236 EKG Tracing & Interpretation Completed 03/02/2017 40674 EKG Tracing & Interpretation Completed 02/26/2017 51905 EKG Tracing & Interpretation Completed 02/26/2017 62773 EKG Tracing & Interpretation Completed 02/14/2017 20703 Cardioversion Completed 02/14/2017 92023 EKG, Interpretation Only Completed 02/14/2017 64115 Echocardiography, Transesophageal, Real Time W/Image 2D Completed W/W/O M-M 02/14/2017 04802 Pulse Wave/Continuous-Interp.RPT Completed 02/14/2017 10372 Color Flow Doppler/Interp & Reprt Completed 02/14/2017 64052 Moderate Sedation Services; Same Phys Intl 15 Mins; PT Completed >=5 Years 02/14/2017 32824 Moderate Sedation Services; Same Phys Each Additional Completed 15 Mins 01/11/2017 41516 EKG Tracing & Interpretation Completed 01/05/2017 55556 Cath PLMT&NJX L Ventriculog Img S&I Completed 01/04/2017 21908 Treadmill Interp/Report Only Completed 01/04/2017 25822 Stress Test Supervsn W/Out I/R Completed 01/03/2017 58399 Treadmill Interp/Report Only Completed 01/03/2017 71727 Stress Test Supervsn W/Out I/R Completed 12/28/2016 80518 Color Flow Doppler/Interp & Reprt Completed 12/28/2016 39932 Pulse Wave/Continuous-Interp.RPT Completed 12/28/2016 68932 Echocardiography, Transesophageal, Real Time W/Image 2D Completed W/W/O M-M 12/27/2016 00740 ECHO Transthorasic Realtime 2D W Doppler & Color Completed Flow Hosp Encounters Type Date Location Provider CPT E/M Dx Office Visit 05/28/2017 2:00p [facility] LOVE Stewart 31313 I48.0 I42.9 I35.0 R06.83 Office Visit 05/08/2017 1:00p [facility] LOVE Stewart 11373 I48.0 I42.9 I35.0 Office Visit 03/15/2017 2:15p [facility] Gisele Baker M.D. 80943 I48.0 [facility] I42.9 I35.0 Office Visit 01/11/2017 11:15a [facility] LOVE Stewart 30989 I50.21 I42.9 I48.1 I35.0 I97.610 Office Visit 01/05/2017 1:43p [facility],monse Abbott, 67383 R07.89 Hospitalists MRainaDRaina I50.21 I48.1 Office Visit 01/04/2017 3:41p [facility] Duarte Gr M.D., 55589 R94.39 [facility] At [facility] Office Visit 01/04/2017 1:43p [facility],monse Abbott, 49492 R07.89 Hospitalists MRainaDRaina I50.21 I48.1 Office Visit 01/03/2017 1:42p [facility],monse Abbott, 70411 R07.89 Hospitalists M.DRaina I50.21 I48.1 Office Visit 01/03/2017 11:10a [facility] Gisele Baker M.D. 17268 R07.9 [facility] I42.9 I48.1 Office Visit 01/02/2017 1:42p [facility],monse Abbott, 60670 R07.89 Hospitalists M.DRaina I50.21 I48.1 Office Visit 12/28/2016 1:37p [facility],monse Abbott, 92876 I48.91 Hospitalists M.D. I50.20 Office Visit 12/28/2016 11:10a [facility] Luiz Godfrey, 19964 I48.91 Deniz I42.9 Office Visit 12/27/2016 9:37a [facility] Gisele Baker M.D. 17369 I48.91 [facility] Office Visit 12/27/2016 1:37p [facility],pc Sue Abbott, 78147 I48.91 Hospitalists Deniz Office Visit 12/26/2016 1:36p [facility],pc Maycol Segovia M.D. 65726 I48.91 Hospitalists Plan of Care Future Appointment(s):06/14/2017 2:10 pm - Gisele Baker M.D. at [facility]07/06/2017 2:40 pm - Gisele Baker M.D. at [facility]06/29/2017 3:00 pm - [facility]CHO Schedule at [facility]2017 - Tsering Kraus PAI48.0 Paroxysmal atrial fibrillationNew Orders:Overnight OximetryComments:Please STOP Sotalol as of last dose this am. Eliquis 5 mg q 12hours Start Carvedilol 1/2 tablet of 6.25 mg twice a day IN PLACE OF sotalol as of tomorrow morning. Continue Lisinopril 5 mg daily for now. Monitor heart rate and if rates >100 bpm at rest, please notify us. Please continue Potassium and Magnesium supplements.Referral:Brian Santiago MD, Cardiac ElectrophyslgyKodaKaela clark MD, Pulmonary DiseasesFollow up:Tikosyn titration admission next Sunday with Dr. Wilcox 06/04/17 to be continued by Dr. Baker Followup 1 week after Tikosyn d/c Cancel appt.I42.9 Cardiomyopathy, kcszqcecjmkS44.0 Nonrheumatic aortic (valve) ranbvlpfL77.83 Snoring
[2017-06-04] MEDS ORDERED: Acetaminophen TAB* 325 MG PO PRN (09:05)
[2017-06-04 10:56] LABS: EGFR Non-African American 97.9 (>60)
[2017-06-04] MEDS: Dofetilide CAP* 500 MCG PO SCH ×2 (12:10→23:25)
[2017-06-04] MEDS: Carvedilol TAB* 3.125 MG PO SCH (21:23)
[2017-06-04] MEDS: Apixaban* 5 MG TAB PO SCH (21:23)
[2017-06-04] MEDS: Zolpidem TAB* 10 MG PO SCH (23:25)
[2017-06-05] MEDS: Carvedilol TAB* 3.125 MG PO SCH ×2 (10:26→21:07)
[2017-06-05] MEDS: DOXYcycline CAP(*) 100 MG PO SCH (10:26)
[2017-06-05] MEDS: Apixaban* 5 MG TAB PO SCH ×2 (10:26→21:07)
[2017-06-05] MEDS: Dofetilide CAP* 500 MCG PO SCH ×2 (10:26→21:07)
[2017-06-05] MEDS: Lisinopril TAB* 5 MG PO SCH (10:26)
[2017-06-05 13:03] LABS: EGFR Non-African American 88.9 (>60)
[2017-06-05] MEDS: Zolpidem TAB* 10 MG PO SCH (21:07)
[2017-06-06] MEDS: Dofetilide CAP* 500 MCG PO SCH (09:00)
[2017-06-06] MEDS ORDERED: Multivitamins/Minerals TAB PO SCH (09:00)
[2017-06-06] MEDS: DOXYcycline CAP(*) 100 MG PO SCH (09:01)
[2017-06-06] MEDS: Carvedilol TAB* 3.125 MG PO SCH (09:01)
[2017-06-06] MEDS: Apixaban* 5 MG TAB PO SCH (09:01)
[2017-06-06] MEDS: Lisinopril TAB* 5 MG PO SCH (09:01)
[2017-06-06 14:27] LABS: EGFR Non-African American 92.6 (>60)
[2017-06-06 16:37] VITALS: BP 126/83
--- NOTE | 2017-06-08 00:06 | DS ---
CC: Warren Wolf NP * DISCHARGE SUMMARY: DATE OF ADMISSION: DATE OF DISCHARGE: 06/06/17 HISTORY OF PRESENT ILLNESS: Mr. Salazar is a 56-year-old gentleman with a history of paroxysmal atrial fibrillation, who initially presented in December of 2016, at that time his ejection fraction was 20% to 25%. The patient has been cardioverted and was placed on sotalol in addition to being treated for obstructive sleep apnea with CPAP. His sotalol dose was low, but could not be increased due to sinus bradycardia on the 40 b.i.d. A decision was made to stop sotalol and bring him in for admission with Tikosyn. The patient underwent Tikosyn loading of 500 mcg b.i.d., dose based on creatinine clearance and QT interval and chemically cardioverted while in the hospital. He had no complaints in the hospital. On the day of discharge, he had quite a few questions about medications and an explanation of the drug interactions was again reviewed with the patient. PAST MEDICAL HISTORY: 1. Paroxysmal atrial fibrillation. 2. Nonischemic cardiomyopathy, 20% to 25% in December 2016, 45% to 50% in February 2017. 3. Normal coronaries on cath, December 2017. 4. Anxiety disorder. 5. Bicuspid aortic valve. 6. Mild mitral insufficiency. 7. Thoracic aortic aneurysm, 4.2 cm. 8. Hyperglycemia. REVIEW OF SYSTEMS: On the day of discharge revealed that the patient has been anxious and not sleeping and wanted pills for this and he states his primary care team has not been wanting to provide these. He states the anxiety is related to a combination of his medical issues and work. PHYSICAL EXAMINATION: On the day of discharge, the patient was 5 feet 10 inches , weighs 193 pounds with a BMI of 27. Blood pressure 110/72, pulse 68, sinus rhythm, respiratory rate 16, oxygen saturation 96%. He was afebrile throughout his hospitalization. LABORATORY DATA: His most recent labs from 06/06/17 shows sodium 136, potassium 3.9, chloride 102, bicarb 26, BUN 15, creatinine 0.85, glucose 150, magnesium 2.2. IMAGING: His EKG on the day of discharge from 9:30 showed normal sinus rhythm at a rate of 68 beats per minute, QRS axis of 0 with normal AV and IV conduction time, corrected QT interval of [address] segments were normal. In conclusion, Nitin Salazar is a 56-year-old gentleman with paroxysmal atrial fibrillation, failed sotalol, who has undergone successful Tikosyn loading. He has additional problem list above with mild to moderate nonischemic cardiomyopathy and a bicuspid aortic valve. DISCHARGE MEDICATIONS: As follows: 1. Tikosyn 500 mcg b.i.d. 2. Coreg 3.125 mg b.i.d. 3. Eliquis 5 mg b.i.d. 4. Tylenol p.r.n. 5. Lisinopril 5 mg a day. 6. Multi-Kamilla. DISCHARGE INSTRUCTIONS: The patient was given written instructions in addition to verbal instructions about Tikosyn and medication interactions and 8 pills were dispensed on discharge. With respect to the anxiety issues, I placed a phone call to Warern Wolf, but she was not available. We will try to coordinate care, but I did not discharge him on any medication for sleep or anxiety. He will follow up in my office next week. [id number]/[facility] #: [id number] MINH
== END 2017-06-06 16:36 | disposition home or self-care (01) | DRG 862 ==
LOC: MEDTELE 08:38
PROVIDERS: ADMIT Specialist; ATTEND Specialist
DX: Z51.81 Encounter for therapeutic drug level monitoring (principal); I42.8 Other cardiomyopathies; I50.22 Chronic systolic (congestive) heart failure; Q23.1 Congenital insufficiency of aortic valve; I48.0 Paroxysmal atrial fibrillation; I71.2 Thoracic aortic aneurysm, without rupture; F41.9 Anxiety disorder, unspecified; R73.9 Hyperglycemia, unspecified; I34.0 Nonrheumatic mitral (valve) insufficiency; Z79.01 Long term (current) use of anticoagulants; Z79.899 Other long term (current) drug therapy; Z82.49 Family history of ischemic heart disease and other diseases of the circulatory system
CPT/HCPCS: 36415; 80048; 83735; 93005; A9270-GY

== ENCOUNTER 2017-12-27 09:44 | Emergency (ER) | payer BC ==
--- NOTE | 2017-12-27 10:11 | ED ---
Palpitations / Dysrhythmia - HPI Summary HPI Summary: This is Bernard Snyder documenting for attending Aries Balderas MD. Pt is a 57 y/o M with a a Hx of A-fib, c/o palpitations onset last evening at ~ 1999. Assoc: fatigue, dizziness: described as dizzy "spells" which resolve on their own. Denies: CP, chest pressure, diarrhea, fever. He notes his thinking is not sharp and that he feels "out of it" but feels okay right now. Pt has a PMHx of Afib and experiences intermittent A-fib episodes lasting 1-2 days in time. He also notes being on blood thinners. Per clinical assessment manager, pt was at a routine doctors appointment and expressed feeling dizzy. An EKG was taken, was noted to be in afib, hx of same. Pt followed up by Dr. Baker, pt had an ablasion in [place] in August. Has had about 4 cardioversions prior. Pt did take medications this am I, Dr. Balderas, personally performed the services described in this documentation as scribed in my presence and it is both accurate and complete. - History of Current Complaint Chief Complaint: EDDysrhythmPalp Time Seen by Provider: 12/27/17 10:01 Hx Obtained From: Patient Onset/Duration: Gradual Onset, Lasting Days, Resolved Timing: Intermittent Episodes Lasting: - 1-2 days Character: Fast, Irregular Associated Signs & Symptoms: Dizzy - Allergy/Home Medications Allergies/Adverse Reactions: Allergies Allergy/AdvReac Type Severity Reaction Status Date / Time No Known Allergies Allergy Verified 12/27/17 15:27 Home Medications: Home Medications ALPRAZolam [Alprazolam] 0.5 mg PO BEDTIME PRN 12/27/17 [History Confirmed ] PMH/Surg Hx/FS Hx/Imm Hx Endocrine/Hematology History: Denies: Hx Diabetes, Hx Thyroid Disease Cardiovascular History: Reports: Hx Atrial Fibrillation, Hx Congestive Heart Failure, Hx Hypertension, Other Cardiovascular Problems/Disorders - rheumatic fever as a child, probable left atrial appendage clot Respiratory History: Denies: Hx Asthma, Hx Chronic Obstructive Pulmonary Disease (COPD) GI History: Denies: Hx Ulcer Sensory History: Reports: Hx Contacts or Glasses Denies: Hx Hearing Aid Opthamlomology History: Reports: Hx Contacts or Glasses Psychiatric History: Reports: Hx Anxiety, Hx Depression Infectious Disease History: No Infectious Disease History: Denies: Hx Hepatitis, Hx Human Immunodeficiency Virus (HIV), Traveled Outside the [place] in Last 30 Days - Family History Known Family History: Negative: Hypertension - Social History Occupation: Employed Full-time Lives: With Family Alcohol Use: None Alcohol Amount: Occasional weekends Substance Use Type: Reports: None Smoking Status (MU): Never Smoked Tobacco Review of Systems Positive: Fatigue, Other - POS: Dizziness (episodes). Negative: Fever, Chills, Skin Diaphoresis Negative: Photophobia, Blurred Vision, Diplopia, Drainage, Erythema Negative: Epistaxis, Dental Pain, Sore Throat, Ear Ache, Nasal Discharge Positive: Palpitations. Negative: Chest Pain Negative: Shortness Of Breath, Cough Negative: Abdominal Pain, Vomiting, Diarrhea, Nausea Negative: burning, dysuria, discharge, frequency, flank pain, hematuria, incontinence, pain, urgency Negative: Arthralgia, Myalgia, Decreased ROM, Edema Negative: Rash, Bruising Negative: Headache, Weakness, Paresthesia, Numbness, Syncope, Slurred Speech Negative: Anxious, Depressed All Other Systems Reviewed And Are Negative: Yes Physical Exam - Summary Physical Exam Summary: Constitutional: Well-developed, Well-nourished, Alert. (-) Distressed Skin: Warm, Dry HENT: Normocephalic; Atraumatic Eyes: Conjunctiva normal Neck: Musculoskeletal ROM normal neck. (-) JVD, (-) Stridor, (-) Tracheal deviation Cardio: Rapid irregular rate and rhythm; Intact distal pulses; The pedal pulses are 2+ and symmetric. Radial pulses are 2+ and symmetric. (-) Murmur Pulmonary/Chest wall: Effort normal. (-) Respiratory distress, (-) Wheezes, (-) Rales Abd: Soft, (-) epigastric tenderness, (-) Distension, (-) Guarding, (-) Rebound Musculoskeletal: (-) Edema Lymph: (-) Cervical adenopathy Neuro: Alert, Oriented x3 Psych: Mood and affect Normal Triage Information Reviewed: Yes Vital Signs On Initial Exam: Initial Vitals Temp Pulse Resp BP Pulse Ox 97.6 F 101 19 119/80 98 12/27/17 09:46 12/27/17 09:46 12/27/17 09:46 12/27/17 09:46 12/27/17 09:46 Vital Signs Reviewed: Yes Diagnostics - Vital Signs Vital Signs Temp Pulse Resp BP Pulse Ox 12/27/17 10:05 96 12/27/17 09:46 97.6 F 101 19 119/80 98 - Laboratory Result Diagrams: 12/27/17 10:28 12/27/17 10:28 Lab Statement: Any lab studies that have been ordered have been reviewed, and results considered in the medical decision making process. - Radiology CXR Xray Interpretation: No Acute Changes - IMPRESSION: No evidence for active cardiopulmonary disease. Radiology Interpretation Completed By: Radiologist - Report has been reviewed by provider and radiologist. - EKG 0947 Cardiac Rate: Other Rate - 109 bpm EKG Rhythm: Atrial Fibrillation ST Segment: Normal Re-Evaluation - Re-Evaluation First Eval Re-Evaluation Time: 11:40 Change: Improved Comment: Pt feels much better; was able to ambulate to the bathroom. HR - 90 bpm now; still in A-fib. Meds are definitely helping. Second Eval Re-Evaluation Time: 15:42 Change: Improved Comment: Pt was cardioverted and is feeling much better. His HR is 56 bpm, in rapid A-fib, he is alert. Per Dr. Alejo, Patient will be D/C. Course/Dx - Course Course Of Treatment: Pt was seen by provider. He was cardioverted and is feeling much better. Pt will be D/C home. - Diagnoses Provider Diagnoses: Rapid atrial fibrillation - Critical Care Time Critical Care Time: 30-74 min - 45 mins Discharge - Sign-Out/Discharge Documenting (check all that apply): Patient Departure - Discharge Plan Condition: Stable Disposition: HOME Patient Education Materials: A-fib (Atrial Fibrillation) (ED) Referrals: Warren Wolf NP [Primary Care Provider] - 2 Days Additional Instructions: RETURN TO THE EMERGENCY DEPARTMENT FOR CHANGING OR WORSENING SYMPTOMS - Billing Disposition and Condition Condition: STABLE Disposition: Home
[2017-12-27 10:45] LABS: ABS Basophils 0 10^3/ul (0-0.2); ABS Eosinophils 0.1 10^3/ul (0-0.6); ABS Lymphocytes 2.2 10^3/ul (1.0-4.8); ABS Monocytes 0.8 10^3/ul (0-0.8); ABS Neutrophils 3.1 10^3/ul (1.5-7.7); ABS Nucleated RBC 0 10^3/ul; Eosinophil % 1.5 % (0-6); Hematocrit 47 % (42-52); Hemoglobin 15.9 g/dl (14.0-18.0); Lymphocyte % 35.4 % (25-47); Mean Corpuscular HGB Conc 34 g/dl (31-36); Mean Corpuscular Hemoglobin 30 pg (27-31); Mean Corpuscular Volume 89 fL (80-94); Mean Platelet Volume 8.2 um3 (7.4-10.4); Nucleated Red Blood Cells % 0.2; Platelet Count 229 10^3/ul (150-450); Red Blood Count 5.24 10^6/ul (4.00-5.40); Red Cell Distribution Width 14 % (10.5-15); White Blood Count 6.2 10^3/ul (3.5-10.8)
--- NOTE | 2017-12-27 11:02 | RAD ---
INDICATION: Chest pain and dizziness. COMPARISON: Comparison is made with prior study from April 23, 2017. TECHNIQUE: Dual-energy PA views of the chest were obtained. FINDINGS: The heart is within normal limits in size. Mediastinal and hilar contours appear within normal limits. The lungs are clear. No pleural effusion is present. IMPRESSION: NO EVIDENCE FOR ACTIVE CARDIOPULMONARY DISEASE.
[2017-12-27 11:03] LABS: EGFR Non-African American 82.1 (>60)
[2017-12-27] MEDS ORDERED: NS 0.9% 1000 ML* 1,000 ML IV ONE ×2 (12:56→14:15)
--- NOTE | 2017-12-27 13:22 | CONSULT ---
Subjective Date of Service: 12/27/17 Interval History: Location: ER Date of consult 12/27/2017 Mobile Application Developer: Dr. Gisele Baker CC: Weakness, fatigue Reason for consult: Symptomatic atrial fibrillation; HPI Mr. Salazar is a 57 year old man with a history as below including paroxysmal atrial fibrillation s/p ablation 08/2017 on tikosyn. He has been anticoagulated with eliquis and has taken for much longer than a month without missing dosing. He complains of palpitations, fatigue and not thinking as sharply since last night. He denies any chest discomfort, change in breathing of significance of syncope. He was found with to be in atrial fibrillation. He has not eating or drank since yesterday and SBP Is in 90's currently (asymptomatic). He is to be given a liter of IV fluid. He has had 4 cardioversions in the past. He is agreeable to another one today for symptom improvement Current meds prior to visit: Dofetilide 500 mcg 1 by mouth twice a day Carvedilol 6.25 mg 1/2 by mouth twice a day Eliquis 5 mg take one tablet by mouth twice a day Lisinopril 5 mg 1 po bid Vmanm-0-Fqmg Ethyl Esters 1 gm take four capsules by mouth every day Multi Vitamin 1 by mouth every other day Potassium Chloride Carleen ER 20 Meq 1 by mouth every day Magnesium Oxide -MG Supplement 250 mg 1 by mouth every day Alprazolam 0.5 mg 1-2 tablet by mouth at bedtime as needed (pt takes 1 tab usually qHS) Allergies: No Known Drug Allergy 01/11/17 allergy list reviewed on 09/14/2017 PMx: Obstructive sleep apnea syndrome, moderate per patients account Paroxysmal atrial fibrillation Atrial fibrillation Bicuspid aortic valve LV dysfunction, recovered Surgical hx: Atrial Fibrillation - Paroxysmal. multiple medications tried, s/p ablation (Dr. Santiago) FH: Father: due to Heart Disease - (age 75 Years). Mother: Alive And Well - (age 82 Years) As of 2017. SH: Marital: .Lives With: , No pets.Occupation: Currently Working, [employer]. Personal Habits: Smoking: Patient has never smoked.Cigarette Use: Never Smoked Cigarettes.Alcohol: Occasionally consumes alcohol.Drug Use: Denies Drug Use.Daily Caffeine: Consumes on average 2 cups of decaff coffee per day.Exercise Type: Exercises regularly, Elliptical - 5x per week. Medications Active Medications: Sodium Chloride (Ns 0.9% 1000 Ml*) 1,000 mls @ 1,000 mls/hr IV .PER RATE ONE Stop: 12/27/17 13:55 Home Medications: [id number]-1-[id number] Ethyl Esters (NF) [Lovaza (NF)] 4 gm PO DAILY 12/26/16 [History Confirmed 12/27/17] Apixaban* [Eliquis*] 5 mg PO BID #60 tab 12/28/16 [Rx Confirmed 12/27/17] Carvedilol TAB* [Coreg TAB*] 1 tab PO BID 06/04/17 [History Confirmed 12/27/17] Lisinopril TAB* [Prinivil TAB 5 MG*] 5 mg PO BID 06/04/17 [History Confirmed ] Magnesium Oxide TAB* [MagOx 400 TAB*] 250 mg PO DAILY 06/04/17 [History Confirmed 12/27/17] Potassium Chlor TAB* [Potassium Chlor TAB 20 MEQ*] 20 meq PO DAILY 06/04/17 [ History Confirmed 12/27/17] Dofetilide CAP* [Tikosyn CAP*] 500 mcg PO BID #60 cap 06/06/17 [Rx Confirmed ] Multivitamins/Minerals TAB* [Theragran/minerals TAB*] 1 tab PO EVERY OTHER DAY tab 06/06/17 [Rx Confirmed 12/27/17] ALPRAZolam [Alprazolam] 0.5 mg PO BEDTIME PRN 12/27/17 [History Confirmed ] Review of Systems - Measurements Intake and Output: Intake and Output Last 24 Hours 12/25/17 12/26/17 12/27/17 12/28/17 06:59 06:59 06:59 06:59 Weight 199 lb - Review of Systems Constitutional Symptoms: Positive: Fatigue Negative: Weight Gain, Weight Loss, Fever, Unexplained Falls Dermatology: Negative: Rash, Skin Lesions HEENT: Negative: Change in Hearing, Vertigo Eyes: Negative: Change in Vision, Double Vision Thyroid: Negative: Cold Intolerance, Heat Intolerance, Weight Loss, Weight Gain Pulmonary: Positive: Exercise Intolerance Negative: Sputum, Hemoptysis, Respiratory Distress, Shortness of Breath, Asthma Cardiology: Positive: Palpitations, Faintness Negative: Shortness of Breath, Swelling of Ankles, Peripheral Vascular Dis, Edema, Syncope, Claudication, Paroxysmal Nocturnal Dyspnea, Orthopnea Gastroenterology: Negative: Nausea, Vomiting, Constipation, Diarrhea Genital - Urinary: Negative: Dysuria, Hematuria Musculoskeletal: Negative: Joint Pain, Joint Stiffness Endocrinology: Negative: Diabetes, Hyperglycemia, Hypoglycemia Hematologic/Lymphatic: Positive: Use of Anticoagulant Negative: Hx Leukemia, Hx Lymphoma, Use of Antiplatelet Drugs Neurology: Negative: Diplopia, Dizziness, Change in Balancing, Change in Coordination, Change in Memory, Hx of Stroke\TIA, Hx Seizures Psychiatry: Negative: Unusual Anxiety, Suicidal Ideation Allergic/Immunologic: Negative: Hx Anaphylaxis, Hx Angioedema, Hx HIV, Immunocompromise Review of Systems Statement: All other review of systems negative, unless stated above. Objective Vital Signs: Temp Pulse Resp BP Pulse Ox 97.6 F 90 23 86/69 91 12/27/17 09:46 12/27/17 12:31 12/27/17 12:31 12/27/17 12:31 12/27/17 12:31 Oxygen Devices in Use Now: None Appearance: pleasant, nad Ears/Nose/Mouth/Throat: Clear Oropharnyx Neck: NL Appearance and Movements; NL JVP Respiratory: Symmetrical Chest Expansion and Respiratory Effort, Clear to Auscultation Cardiovascular: - - irregularly irregular, 1/6 systolic mumur Abdominal: NL Sounds; No Tenderness; No Distention Extremities: No Edema, No Clubbing, Cyanosis Skin: No Rash or Ulcers Neurological: Alert and Oriented x 3 Laboratory Results: 12/27/17 10:28 12/27/17 10:28 Total Bilirubin 0.60 mg/dL (0.2-1.0) 12/27/17 10:28 AST 29 U/L (13-39) 12/27/17 10:28 ALT 34 U/L (7-52) 12/27/17 10:28 Alkaline Phosphatase 75 U/L (34-104) 12/27/17 10:28 Total Protein 7.0 g/dL (6.4-8.9) 12/27/17 10:28 Albumin 4.1 g/dL (3.2-5.2) 12/27/17 10:28 Globulin 2.9 g/dL (2-4) 12/27/17 10:28 Albumin/Globulin Ratio 1.4 (1-3) 12/27/17 10:28 12/27/17 10:28 Troponin I 0.01 Diagnostic Imaging: Cardiac Testing: T E E - (08/13/2017) Ef 55-75%, LA moderately dilated. bubble study negative, no evidence of thromus or mass. RV moderately enlarged, RA moderatley enlarged. aortic leaflets are midly thickened, aortic leaflet mobility mildly reduced. aortic valve bicuspid. mild aortic stenosis. trace MR. trace OR. Trace TR. ascending aorta mildly enlarged, sinus 3.7 cm, tubular 4.6 cm, arch 2.7 cm. Echocardiogram - (12/27/2016) EF 20-25% with global hypokinesis and minor regional variation and severe systolic dysfunction. Bicuspid aortic valve with moderate , trace AI, mean gradient 7.3 mmHg, EBENEZER 1 cm2. Mild MR, mild TR, mild OR. Moderate dilatation of ascending aorta and aortic arch. No dilatation of aortic root. Cardiac Catheterization - (01/05/2017) No sig obstructive CAD. Unable to cross aortic valve after attempting for 5 minutes with aysmptomatic hypotension. cxr today: no acute disease EKG Data: ekg 12/27/2017: Afib rate 110 bpm, qtc normal Assessment/Plan In summary, Mr. Salazar is a 56-year-old man with a history as above I am consulting for symtomatic atrial fibrillation. I discussed with his microfilmer Dr. Gisele Baker and we agreed that patient would benefit from an external electrical cardioversion. Risks, benefits and alternatives were discussed and patient wishes to proceed. He has been chronically anti-coagulated for at least a month without interruption so HARDY not mandated prior to cardioversion. He has not ate or drank today. Will arrange for external electrical cardioversion today. He should follow up with Dr. Baker for further evaluation and management Thank you for allowing me to participate in the cardiovascular care of this patient. Please do not hesitate to contact me with questions or concerns.
[2017-12-27] MEDS ORDERED: Flumazenil* 0.1 MG/ML 5 ML MDV ONE (14:09)
[2017-12-27] MEDS ORDERED: fentaNYL* 50 MCG/ML 2 ML VIAL (100 MCG VIAL) ONE (14:09)
[2017-12-27] MEDS ORDERED: Naloxone* 0.4 MG/ML 1 ML VIAL ONE (14:09)
[2017-12-27] MEDS ORDERED: Midazolam* 1 MG/ML 10 ML VIAL (10 MG) ONE (14:09)
--- NOTE | 2017-12-27 14:49 | CONSULT ---
Cardiology Note 12/27/2017 External electrical cardioversion Patient with symptomatic atrial fibrillation Risks, benefits, alternatives discussed and patient wished to proceed Patient has been anticoagulated for at least a month with uninterrupted eliquis so HARDY not performed Sedation used 4 mg IV versed, 50 mcg IV fentanyl Patient successfully cardioverted from atrial fibrillation to sinus rhythm with 120J external electrical sync x 1 Post-CV EKG showed NSR 53 bpm, normal QTc 422 ms No complications
[2017-12-27 16:53] VITALS: BP 109/71
== END 2017-12-27 16:52 | disposition home or self-care (01) ==
LOC: ED 09:44
DX: I48.91 Unspecified atrial fibrillation (principal); Z79.01 Long term (current) use of anticoagulants; R42 Dizziness and giddiness; R53.83 Other fatigue; I10 Essential (primary) hypertension; F41.9 Anxiety disorder, unspecified
CPT/HCPCS: 36415; 71045; 80053; 83605; 84484; 85025; 92960; 93005; 96361; 99156; 99285; J2250; J2310; J3010